=== PATIENT | female | born 1940 | race Caucasian/White ===

== ENCOUNTER 2018-01-19 13:14 | Observation (INO) ==
[2018-01-19] MEDS ORDERED: 0.9 % Sodium Chloride 1,000 ML ONE (13:28)
[2018-01-19] MEDS ORDERED: Ondansetron 4 MG/2 ML VIAL IVP ONE (13:29)
[2018-01-19] MEDS ORDERED: *HR* FentaNYL (PF) 100 MCG/2 ML VIAL IVP ONE (13:29)
[2018-01-19] MEDS ORDERED: 0.9 % Sodium Chloride 1,000 ML IVC SCH (13:30)
--- NOTE | 2018-01-19 13:31 | Emergency Department Note ---
Disposition Clinical Impression: Defibrillator discharge Disposition: Transfer Other Condition: Good General Adult HPI - General Chief complaint: ED Chest Pain Stated complaint: Defib Pacer Firing Time Seen by Provider: 01/19/18 13:20 Source: patient, family Limitations: no limitations - History of Present Illness Pain Scale: 0 - Related Data Home Medications Medication Instructions Recorded Confirmed Metoprolol Succinate [Toprol Xl] 50 mg PO 01/19/18 RX: Furosemide [Lasix] 01/19/18 RX: Lisinopril [Zestril] 01/19/18 RX: Sertraline [Zoloft] 01/19/18 Warfarin Sodium [Warfarin Sodium] 01/19/18 Allergies Allergy/AdvReac Type Severity Reaction Status Date / Time sotalol Allergy Palpitation Verified 01/19/18 13:26 s Past Medical History - Past Medical History Medical history: Reports: atrial fibrillation, CHF Psychiatric history: Reports: no psych history - Social History Smoking Status: Never smoker Smokeless Tobacco Status: No Alcohol use: Reports: none Drug use: Reports: none Physical Exam - General Limitations: no limitations General appearance: alert, in no apparent distress Course Vital Signs Temperature 98.4 F 01/19/18 13:17 Pulse Rate 138 01/19/18 13:17 Respiratory Rate 18 01/19/18 13:17 Blood Pressure 123/106 01/19/18 13:17 O2 Sat by Pulse Oximetry 95 01/19/18 13:17 Temperature 98.4 F 01/19/18 13:17 Pulse Rate 89 01/19/18 15:30 Respiratory Rate 18 01/19/18 16:29 Blood Pressure 123/74 01/19/18 16:29 O2 Sat by Pulse Oximetry 95 01/19/18 15:30 Oxygen Delivery Oxygen Delivery Room Air Medical Decision Making - Lab Data Result diagrams: 01/19/18 13:26 01/19/18 13:26 Lab Results 01/19/18 01/19/18 01/19/18 Range/Units 13:26 13:26 13:26 WBC 8.2 (4.3-11.1) K/mcL RBC 4.06 (3.82-4.97) M/mcL Hgb 11.6 (11.5-15.4) g/dL Hct 35.3 (35.3-44.9) % MCV 86.9 (83.0-100.0) fL MCH 28.6 (28.0-33.3) pg MCHC 32.9 (31.6-35.5) g/dL RDW 13.7 (11.5-14.5) % Plt Count 209 (140-400) K/mcL MPV 10.5 (9.4-12.4) fL Immature Gran % 0.2 (0-4) % Seg Neutrophils % 53.1 % Lymphocytes % 30.2 % Monocytes % 11.0 % Eosinophils % 5.0 % Basophils % 0.5 % Neutrophils # 4.4 (1.6-8.9) K/mcL Lymphocytes # 2.5 (0.6-4.6) K/mcL Monocytes # 0.9 (0.0-1.3) K/mcL Eosinophils # 0.4 (0.0-0.6) K/mcL Basophils # 0.0 (0.0-0.2) K/mcL PT 20.0 H (9.4-12.1) Seconds INR 1.8 APTT 30.8 (26.0-36.0) Seconds Sodium 139 (136-145) mEq/L Potassium 3.4 L (3.5-5.1) mEq/L Chloride 105 (98-107) mEq/L Carbon Dioxide 22 L (23-29) mEq/L BUN 26 H (8-23) mg/dL Creatinine 1.16 (0.60-1.20) mg/dL Est GFR ( Amer) 55 L (> 60) Est GFR (Non-Af Amer) 46 L (> 60) BUN/Creatinine Ratio 22 (6-26) Glucose 165 H (70-105) mg/dL Calculated Osmolality 296 (280-300) Calcium 9.6 (8.6-10.3) mg/dL Troponin I 0.06 H* (< 0.04) ng/mL TSH 2.918 (0.340-5.600) mcIU/mL Critical Care Time Critical Care Time: Yes Total Critical Care Time: 40 Attestation: Critical care performed: Time is exclusive of separately billable procedures. Time includes: direct patient care, patient reassessment, coordination of patient care, interpretation of data (laboratory data, radiology data, and respiratory data), review of patient's medical records, medical consultation and documentation of patient care. Procedures included in critical care time: Procedures excluded from critical care time: Attestation Statement - Attestation Attestation: I examined this patient and my medical decision-making was reviewed with the Resident Physician. I agree with the documented findings, disposition and treatment plan as described except to the extent set forth below. Patient to the ED with a chief complaint of her defibrillator firing. Multiple firings before she arrived here. Patient is visiting from out of town for a birthday libertarian. She did not bring her metoprolol. She has a defibrillator that she states was placed for A. fib. Patient in no distress on examination. Heart tachycardia and irregularly irregular. Plan. Patient is in A. fib with RVR. Infrequent PVCs. Multiple shocks when her rate approaches 150. Patient is likely BNP febrile in her for A. fib with RVR secondary to not taking her home medications. Attempting to obtain a card from [facility] for her defibrillator. IV Cardizem given. Patient has been discussed with cardiology. She will be admitted here. Rate control below [address] [facility] contacted to interrogate. The patient had no further shocks since her rate is been controlled. Her AICD was interrogated. The patient's aicd has gone into back of mode. Unable to print off her report. The patient has had over 100 charges. They are recommending device replacement. Patient is requesting a good amount caramel for this. Device has been shut off with magnet at the request of the accepting client relations representative.
[2018-01-19 13:50] LABS: Basophils % 0.5 %; Eosinophils # 0.4 K/mcL (0.0-0.6); Hematocrit 35.3 % (35.3-44.9); Hemoglobin 11.6 g/dL (11.5-15.4); Immature Granulocytes % 0.2 % (0-4); Lymphocytes # 2.5 K/mcL (0.6-4.6); Lymphocytes % 30.2 %; Mean Corpuscular HGB Conc 32.9 g/dL (31.6-35.5); Mean Corpuscular Hemoglobin 28.6 pg (28.0-33.3); Mean Corpuscular Volume 86.9 fL (83.0-100.0); Mean Platelet Volume 10.5 fL (9.4-12.4); Monocytes # 0.9 K/mcL (0.0-1.3); Neutrophils # 4.4 K/mcL (1.6-8.9); Platelet Count 209 K/mcL (140-400); Red Blood Count 4.06 M/mcL (3.82-4.97); Red Cell Distribution Width 13.7 % (11.5-14.5); Segmented Neutrophils % 53.1 %
[2018-01-19 13:55] LABS: INR 1.8
[2018-01-19 13:58] LABS: Activated Partial Thrombo Time 30.8 Seconds (26.0-36.0)
[2018-01-19 14:15] LABS: Calcium 9.6 mg/dL (8.6-10.3); Potassium 3.4 mEq/L (3.5-5.1)
[2018-01-19 14:23] LABS: Thyroid Stimulating Hormone 2.918 mcIU/mL (0.340-5.600)
[2018-01-19 14:27] LABS: Troponin I 0.06 ng/mL (< 0.04)
--- NOTE | 2018-01-19 15:04 | Emergency Department Note ---
Disposition Clinical Impression: Defibrillator discharge Disposition: Transfer Other Condition: Good Chest Pain HPI - General Chief Complaint: ED Chest Pain Stated Complaint: Defib Pacer Firing Time Seen by Provider: 01/19/18 13:20 Source: patient, family Limitations: no limitations Vital Signs Reviewed: Yes Nursing Notes Reviewed: Yes - History of Present Illness HPI Narrative: Patient presents today for evaluation of defibrillator firing. Patient has a history of ischemic cardiomyopathy with defibrillator placement. History of atrial fibrillation on Coumadin. The patient presents today for evaluation of ventilator firing. She was traveling for a birthday alliance party and has been without her rate control medication for 2 days. She got in argument and became upset. Patient was walking down the driveway when her defibrillator went off. Patient had greater than 20 reported shocks prior to arrival. The patient had 2 shocks while in the emergency department. Patient's monitor did not show V. tach. A. fib RVR with great greater than 130. The patient has not had any other preceding symptoms. Does not shortness of breath. Patient's chest is sore. Patient will be given rate control medication as well as pain medication and labs will be checked. A request has been sent for her device information. Her device is a [facility] defibrillator and a wrap will be called to come interrogate. Severity scale (1-10): 0 - Related Data Home Medications Medication Instructions Recorded Confirmed Metoprolol Succinate [Toprol Xl] 50 mg PO 01/19/18 RX: Furosemide [Lasix] 01/19/18 RX: Lisinopril [Zestril] 01/19/18 RX: Sertraline [Zoloft] 01/19/18 Warfarin Sodium [Warfarin Sodium] 01/19/18 Allergies Allergy/AdvReac Type Severity Reaction Status Date / Time sotalol Allergy Palpitation Verified 01/19/18 13:26 s Review of Systems: CONSTITUTIONAL: No weight loss, fever, chills, weakness or fatigue. HEENT: Eyes: No visual changes. Ears, Nose, Throat: No hearing loss, difficulty talking or unable to swallow. SKIN: No rash or itching. CARDIOVASCULAR: Chest pain after defibrillator firing RESPIRATORY: No shortness of breath, cough or sputum. GASTROINTESTINAL: No anorexia, nausea, vomiting or diarrhea. No abdominal pain or blood. GENITOURINARY: No burning on urination or hematuria. NEUROLOGICAL: No headache, dizziness, syncope, paralysis, ataxia, numbness or tingling in the extremities. No change in bowel or bladder control. MUSCULOSKELETAL: No muscle pain, back pain, joint pain or stiffness. Chest Pain PMH - Past Medical History Medical history: Reports: atrial fibrillation, CHF Psychiatric history: Reports: no psych history - Social History Smoking Status: Never smoker Alcohol use: Reports: none Drug use: Reports: none Physical Exam General: Patient received fibular shock while Head: Normocephalic Atraumatic Eyes: PERRL, EOMI ENT: Airway patent, no stridor Neck: supple, no meningismus Chest: Lungs clear to auscultation bilateral Cardiac: Irregular rate and rhythm Abdomen: soft, nontender, nondistended; no guarding, rebound, or tenderness to percussion Musculoskeletal: Calves symmetric, nontender, no palpable cord Skin: No rash, normal skin tone Neuro: Alert and Oriented to person, place, and time - General Limitations: no limitations General appearance: alert, in no apparent distress Course - Reevaluation(s) Reevaluation #1: Information from our [facility] has been obtained. Case was discussed with cardiology. Patient was offered admission to the hospital versus transferred to see her sergeant of officers about [facility]. Patient requests to stay here his family and all of her other resources are in this area. - Consultations Consultation #1: Call was placed a [facility] Ont[facility] on the way to interrogate the device Consultation #2: Discussed with cardiology. Patient should be brought into the emergency department secondary to common a shock she has received. Further evaluation of the cardiology team will happen as a consult. Consultation #3: Discussed with hospitalist. Patient accept for admission. Additional Consultation(s): [facility] came to the emergency department to evaluate the device. The device has gone into backup mode with a lower set rate which likely explain the discharges. The device will need to be exchanged. I have discussed this with the patient and the patient requests transfer to [facility] to see Dr. Shipley. Alcohol was called and Dr. Shipley was available to discuss the case. He recommends placing a magnet on the chest to deactivate the defibrillator so that it is not shocker while in A. fib. Magnet has been placed on the patient's chest. She has been reevaluated and continues to be asymptomatic as she is rate controlled in the 80s. Blood pressure continues to be stable. Vital Signs Temperature 98.4 F 01/19/18 13:17 Pulse Rate 138 01/19/18 13:17 Respiratory Rate 18 01/19/18 13:17 Blood Pressure 123/106 01/19/18 13:17 O2 Sat by Pulse Oximetry 95 01/19/18 13:17 Temperature 98.4 F 01/19/18 13:17 Pulse Rate 89 01/19/18 15:30 Respiratory Rate 18 01/19/18 16:29 Blood Pressure 123/74 01/19/18 16:29 O2 Sat by Pulse Oximetry 95 01/19/18 15:30 Oxygen Delivery Oxygen Delivery Room Air Chest Pain - Medical Records Medical records reviewed: Yes I reviewed the patient's medical records. - Lab Data Lab results reviewed: Yes I reviewed the patient's lab results. Result diagrams: 01/19/18 13:26 01/19/18 13:26 Lab Results 01/19/18 01/19/18 01/19/18 Range/Units 13:26 13:26 13:26 WBC 8.2 (4.3-11.1) K/mcL RBC 4.06 (3.82-4.97) M/mcL Hgb 11.6 (11.5-15.4) g/dL Hct 35.3 (35.3-44.9) % MCV 86.9 (83.0-100.0) fL MCH 28.6 (28.0-33.3) pg MCHC 32.9 (31.6-35.5) g/dL RDW 13.7 (11.5-14.5) % Plt Count 209 (140-400) K/mcL MPV 10.5 (9.4-12.4) fL Immature Gran % 0.2 (0-4) % Seg Neutrophils % 53.1 % Lymphocytes % 30.2 % Monocytes % 11.0 % Eosinophils % 5.0 % Basophils % 0.5 % Neutrophils # 4.4 (1.6-8.9) K/mcL Lymphocytes # 2.5 (0.6-4.6) K/mcL Monocytes # 0.9 (0.0-1.3) K/mcL Eosinophils # 0.4 (0.0-0.6) K/mcL Basophils # 0.0 (0.0-0.2) K/mcL PT 20.0 H (9.4-12.1) Seconds INR 1.8 APTT 30.8 (26.0-36.0) Seconds Sodium 139 (136-145) mEq/L Potassium 3.4 L (3.5-5.1) mEq/L Chloride 105 (98-107) mEq/L Carbon Dioxide 22 L (23-29) mEq/L BUN 26 H (8-23) mg/dL Creatinine 1.16 (0.60-1.20) mg/dL Est GFR ( Amer) 55 L (> 60) Est GFR (Non-Af Amer) 46 L (> 60) BUN/Creatinine Ratio 22 (6-26) Glucose 165 H (70-105) mg/dL Calculated Osmolality 296 (280-300) Calcium 9.6 (8.6-10.3) mg/dL Troponin I 0.06 H* (< 0.04) ng/mL TSH 2.918 (0.340-5.600) mcIU/mL - Radiology Data Radiology results reviewed: Yes I reviewed the patient's radiology results. - EKG Data EKG attestation: Yes I reviewed and interpreted this EKG. EKG results narrative: EKG shows atrial fibrillation with rapid ventricular response at a rate of 124. Patient has no significant ST elevations or depressions. There are occasional PVCs. No significant ischemic changes.
[2018-01-19] MEDS ORDERED: Naloxone 0.4 MG/ML INJ IVP PRN (16:16)
[2018-01-19] MEDS ORDERED: *HR* Heparin 5,000 UNIT/ML VIAL SQ ONE (16:20)
--- NOTE | 2018-01-19 16:31 | Internal Med History&Physical ---
<Delbert Ellis - Last Filed: 01/19/18 16:28> Date of Encounter: 01/19/18 Time of Encounter: 16:28 Internal Medicine - H&P: HPI Chief complaint: AICD firing Admitted From: Home Plans for Post Hospital Care: Home History of present illness: Ms. Gannon is a 77 year old female history of congestive heart failure, atrial fibrillation, coronary artery disease presented with chief complaint of a AICD firing 30 times this morning. Patient reports she was in a argument with her daughter and became agitated. Her heart rate increased and her AICD started firing. She is on metoprolol for A. fib but forgot her medication at home. Patient reported chest pain secondary to AICD firing as well as nausea. She denied headache, blurry vision, diaphoresis, shortness of breath, cough. Patient reports this has happened in the past in 2012 and her certified wellness program coordinator had to change the pacemaker/AICD settings. Patient had AICD placed in [facility]. Her last device check was 7 months ago. Past Med Surg Social Fam HX - Past Medical History Medical history: atrial fibrillation, CHF Psychiatric history: no psych history - Past Surgical History Surgical History: appendectomy, breast surgery (b/l mastectomy-1960s for suspected breast cancer but patient reports biopsy was benign. ), heart valve replacement (mitral valve replacement), AICD, pacemaker - Social History Smoking Status: Never smoker Smokeless Tobacco Status: No Alcohol use: none Drug use: none Internal Medicine - H&P: Meds Furosemide [Lasix] 01/19/18 [History] Lisinopril [Zestril] 01/19/18 [History] Metoprolol Succinate [Toprol Xl] 50 mg PO 01/19/18 [History] Sertraline [Zoloft] 01/19/18 [History] Warfarin Sodium [Warfarin Sodium] 01/19/18 [History] 3 Allergy/AdvReac Type Severity Reaction Status Date / Time sotalol Allergy Palpitation Verified 01/19/18 13:26 s All Systems PM: A 10-system review of systems was performed and is negative for pertinent findings except as documented above in the HPI. Review of systems: Constitutional: Denies fever, chills HEENT: Denies headache, vision changes, neck pain, sore throat, rhinorrhea Heart: Reports chest pain palpitations Lungs: Denies shortness of breath cough Abdomen: Denies abdominal pain vomiting diarrhea Back: Denies back pain Kidney: Denies dysuria, hematuria Skin: Denies rash, lesions Extremities: Denies swelling, pain Neuro: Denies numbness and tingling - Constitutional Vitals: Temp Pulse Resp BP Pulse Ox 98.4 F 89 16 110/83 95 01/19/18 13:17 01/19/18 15:30 01/19/18 15:30 01/19/18 15:30 01/19/18 15:30 - Other Additional findings: General: plesant without distress HEENT: Head atraumatic, normocephalic, EOMI, PERRL, neck nontender to palpation , absent lymphadenopathy, Moist Mucous Membranes, Heart: Irregularly irregular rate controlled Lungs: Clear to auscultation bilaterally Abdomen: Soft nontender, nondistended positive bowel sounds Skin: warm and dry, absent rash. Proximal sternal scar s/p mitral vavle replacement. Extremities: Trace symmetric lower extremity edema with 1+ left lower extremity and no edema on right lower extremity Patient reports this is normal for her. Neuro: Cranial nerves II through XII intact, UE and LE sensation equal bilaterally, UE and LEstrength 5/5, alert oriented 3, Heel to leal intact, finger to nose intact, Gait intact, rhombergs sign negative, b/l plantar reflexes downwards Vascular: Pedal and radial pulses 2 out of 4 Internal Med - H&P Results - Labs CBC & Chem 7: 01/19/18 13:26 01/19/18 13:26 - Assessment and plan (1) Defibrillator discharge Current Visit: Yes Status: Acute Assessment and plan: Patient reports she was an argument with her daughter resulted in increase in her heart rate. This has happened in the past. She reports her AICD fired 30 times. Since admission her AICD has not fired. Cardiology has been consulted for device check (2) Atrial fibrillation with RVR Current Visit: Yes Status: Resolved Assessment and plan: Patient presented with A. fib RVR She was turned Cardizem drip and currently A. fib RVR has resolved. We will continue Cardizem drip and restart patient's metoprolol continue warfarin INR 1.8. (3) H/O mitral valve replacement with mechanical valve Current Visit: Yes Status: Acute Assessment and plan: hx of mitral valve replacement on warfarin no echo on file as she follows at [facility] [place]. (4) History of anxiety Current Visit: Yes Status: Acute Assessment and plan: Patient has a history of anxiety. We will continue her sertraline. (5) Congestive heart failure Current Visit: Yes Status: Chronic Assessment and plan: Patient has a history of congestive heart failure. Not an exacerbation. Chest x-ray was negative for acute process did show cardiomegaly. Continue Lasix and lisinopril Qualifiers: Heart failure type: unspecified Heart failure chronicity: chronic Qualified Code(s): I50.9 - Heart failure, unspecified (6) Hypokalemia Current Visit: Yes Status: Acute Assessment and plan: Mildly hypokalemic will replace. (7) DVT prophylaxis Current Visit: Yes Status: Acute Assessment and plan: warfarin - Time Spent With Patient Total time spent is greater than 50% in coordination of care (as documented) at patient's floor/unit and/or counseling patient: <Kameron Jimenez - Last Filed: 01/19/18 18:23> Date of Encounter: 01/19/18 Internal Medicine - H&P: HPI History of present illness: Ms. Gannon is a 77 year old female All Systems PM: A 10-system review of systems was performed and is negative for pertinent findings except as documented above in the HPI. - Constitutional Vitals: Temp Pulse Resp BP Pulse Ox 98.4 F 89 18 123/74 95 01/19/18 13:17 01/19/18 15:30 01/19/18 16:29 01/19/18 16:29 01/19/18 15:30 Internal Med - H&P Results - Labs CBC & Chem 7: 01/19/18 13:26 01/19/18 13:26 - Attending Attestation Pt transferred to [facility]. I did not see her. - Assessment and plan (1) Defibrillator discharge Current Visit: Yes Status: Acute (2) Atrial fibrillation with RVR Current Visit: Yes Status: Resolved (3) H/O mitral valve replacement with mechanical valve Current Visit: Yes Status: Acute (4) History of anxiety Current Visit: Yes Status: Acute (5) Congestive heart failure Current Visit: Yes Status: Chronic Qualifiers: Heart failure type: unspecified Heart failure chronicity: chronic Qualified Code(s): I50.9 - Heart failure, unspecified (6) Hypokalemia Current Visit: Yes Status: Acute (7) DVT prophylaxis Current Visit: Yes Status: Acute - Time Spent With Patient Total time spent is greater than 50% in coordination of care (as documented) at patient's floor/unit and/or counseling patient:
[2018-01-19] MEDS ORDERED: Potassium Chloride Elixir 20 MEQ/15 ML UDC PO ONE (16:42)
[2018-01-19] MEDS ORDERED: *HR* Enoxaparin 60 MG/0.6 ML SYRINGE SQ STA (17:39)
[2018-01-19] MEDS ORDERED: *HR* Warfarin 3 MG TABLET PO SCH (18:00)
[2018-01-20] MEDS ORDERED: *HR* Heparin 5,000 UNIT/ML VIAL IVP ONE (07:49)
[2018-01-20] MEDS ORDERED: *HR* Heparin 5,000 UNIT/ML VIAL IVP PRN ×2 (07:49)
[2018-01-20] MEDS ORDERED: Heparin 25,000 UNIT/500 ML D5W 25,000 UNIT/500 ML BAG IVC SCH (08:00)
--- NOTE | 2018-01-20 08:48 | Event Note ---
Date of Encounter: 01/20/18 Time of Encounter: 08:00 - Cardiology Event Note Patient listed as inpatient as of this morning at time of order for IV heparin gtt. Order for heparin gtt (standard) protocol ordered for INR 1.8 and hx of mechanical MV. Upon further review, patient was transferred to [facility] (pt request, Equipment Tester Dr. Shipley) yesterday 01/19.
[2018-01-20] MEDS ORDERED: Furosemide 40 MG TABLET PO SCH (09:00)
[2018-01-20] MEDS ORDERED: Metoprolol XL (24 HR) Succ 50 MG TAB.ER.24H PO SCH (09:00)
[2018-01-20] MEDS ORDERED: Lisinopril 20 MG TABLET PO SCH (09:00)
--- NOTE | 2018-01-21 14:25 | Electrocardiograph Report ---
[place] [address] Test Date: 2018-01-19 Pat Name: Marcia Gannon Department: 102 Room: [facility] Gender: F Safety Companion: Naa : 1940 Requested By: [id number] Order Number: [id number] Reading MD: Lizy Arenas Measurements Intervals [place] Rate: 124 P: FL: 0 QRS: 71 QRSD: 96 T: 6 QT: 312 QTc: 386 Interpretive Statements ATRIAL FIBRILLATION WITH RAPID VENTRICULAR RESPONSE WITH ABERRANT CONDUCTION OR VENTRICULAR PREMATURE COMPLEXES POSSIBLE ANTERIOR MYOCARDIAL INFARCTION [30 ms Q WAVE IN V3/V4, OR R < 0.2 mV IN V4], OF INDETERMINATE AGE Electronically Signed On 01-21-2018 14:24:00 EDT by Lizy Arenas
== END 2018-01-21 12:40 | disposition other institution (70) ==
LOC: EMEROO 13:14 → 2NENU 13:14 → UNDODISOB 19:10
PROVIDERS: ADMIT General Practice; ATTEND General Practice

== ENCOUNTER 2019-11-25 17:49 | Inpatient (IN) ==
[2019-11-25 18:59] LABS: Basophils % 0.3 %; Eosinophils # 0.1 K/mcL (0.0-0.6); Eosinophils % 2.6 %; Hematocrit 33.1 % (35.3-44.9); Hemoglobin 10.4 g/dL (11.5-15.4); Immature Granulocytes % 0.3 % (0-4); Lymphocytes # 0.8 K/mcL (0.6-4.6); Lymphocytes % 20.7 %; Mean Corpuscular HGB Conc 31.4 g/dL (31.6-35.5); Mean Corpuscular Hemoglobin 24.8 pg (28.0-33.3); Mean Platelet Volume 11.8 fL (9.4-12.4); Monocytes # 0.6 K/mcL (0.0-1.3); Neutrophils # 2.4 K/mcL (1.6-8.9); Platelet Count 161 K/mcL (140-400); Red Blood Count 4.19 M/mcL (3.82-4.97); Red Cell Distribution Width 16.7 % (11.5-14.5); Segmented Neutrophils % 61.1 %; White Blood Count 3.9 K/mcL (4.3-11.1)
[2019-11-25 19:01] LABS: INR 2.5; Prothrombin Time 28.7 Seconds (9.4-12.1)
[2019-11-25 19:04] LABS: Activated Partial Thrombo Time 45.5 Seconds (26.0-36.0)
[2019-11-25 19:17] LABS: BUN/Creatinine Ratio 16 (6-26); Blood Urea Nitrogen 20 mg/dL (8-23); Calcium 9.3 mg/dL (8.6-10.3); Carbon Dioxide 25 mEq/L (23-29); Chloride 103 mEq/L (98-107); Glucose 87 mg/dL (70-105); Osmolality,Calculated 284 (280-300); Potassium 3.9 mEq/L (3.5-5.1); Sodium 136 mEq/L (136-145); eGFR For African Americans 52 (> 60); eGFR For Non-African Americans 43 (> 60)
[2019-11-25 19:18] LABS: Troponin I < 0.03 ng/mL (< 0.04)
[2019-11-25] MEDS ORDERED: Furosemide 20 MG/2 ML VIAL IVP ONE (19:33)
[2019-11-25] MEDS ORDERED: *HR* Warfarin 3 MG TABLET PO ONE (23:45)
[2019-11-26 04:46] LABS: INR 2.6; Prothrombin Time 29.8 Seconds (9.4-12.1)
[2019-11-26 05:01] LABS: Albumin 3.8 g/dL (3.5-5.7); Albumin/Globulin Ratio 1.7 (1.1-2.2); Bilirubin,Total 1.2 mg/dL (0.3-1.0); Calcium 9.3 mg/dL (8.6-10.3); Globulin 2.3 g/dL (2.4-3.5); Potassium 3.7 mEq/L (3.5-5.1); Total Protein 6.1 g/dL (6.4-8.9)
[2019-11-26 07:51] LABS: Hemoglobin 10.2 g/dL (11.5-15.4); Mean Corpuscular Volume 79.3 fL (83.0-100.0)
[2019-11-26 07:53] LABS: Hematocrit 32.6 % (35.3-44.9); Immature Platelets 5.4 % (1.1-6.1); Mean Corpuscular HGB Conc 31.3 g/dL (31.6-35.5); Mean Corpuscular Hemoglobin 24.8 pg (28.0-33.3); Mean Platelet Volume 11.8 fL (9.4-12.4); Red Blood Count 4.11 M/mcL (3.82-4.97); Red Cell Distribution Width 16.7 % (11.5-14.5); White Blood Count 3.3 K/mcL (4.3-11.1)
[2019-11-26] MEDS ORDERED: Perflutren Lipid Microsphere 1.3 ML in 0.9 % Sodium Chloride 8.7 ML IVP ONE (08:08)
[2019-11-26] MEDS ORDERED: Furosemide 20 MG/2 ML VIAL IVP SCH (09:00)
[2019-11-26] MEDS ORDERED: Acetaminophen 325 MG TABLET PO PRN (11:22)
[2019-11-26] MEDS: Metoprolol XL (24 HR) Succ 25 MG TAB.ER.24H PO SCH (15:39)
[2019-11-26] MEDS: lisinopriL 5 MG TABLET PO SCH (15:39)
[2019-11-26] MEDS ORDERED: Warfarin perPT PO PRN (18:00)
[2019-11-26] MEDS ORDERED: *HR* Warfarin 3 MG TABLET PO ONE (18:00)
[2019-11-26] MEDS: Furosemide 20 MG/2 ML VIAL IVP SCH (19:49)
[2019-11-27 02:35] LABS: Basophils % 0.2 %; Eosinophils # 0.1 K/mcL (0.0-0.6); Eosinophils % 1.9 %; Hematocrit 31.8 % (35.3-44.9); Immature Granulocytes % 0.2 % (0-4); Lymphocytes # 0.9 K/mcL (0.6-4.6); Lymphocytes % 21.1 %; Mean Corpuscular HGB Conc 31.4 g/dL (31.6-35.5); Mean Corpuscular Hemoglobin 24.6 pg (28.0-33.3); Mean Corpuscular Volume 78.3 fL (83.0-100.0); Mean Platelet Volume 11.1 fL (9.4-12.4); Monocytes # 0.6 K/mcL (0.0-1.3); Neutrophils # 2.6 K/mcL (1.6-8.9); Platelet Count 153 K/mcL (140-400); Red Blood Count 4.06 M/mcL (3.82-4.97); Red Cell Distribution Width 16.6 % (11.5-14.5); Segmented Neutrophils % 61.6 %; White Blood Count 4.3 K/mcL (4.3-11.1)
[2019-11-27 02:38] LABS: INR 2.9
[2019-11-27 02:56] LABS: Calcium 9.3 mg/dL (8.6-10.3); Potassium 3.5 mEq/L (3.5-5.1)
[2019-11-27] MEDS: Metoprolol XL (24 HR) Succ 25 MG TAB.ER.24H PO SCH (08:30)
[2019-11-27] MEDS: lisinopriL 5 MG TABLET PO SCH (08:30)
[2019-11-27] MEDS: Furosemide 20 MG/2 ML VIAL IVP SCH (08:39)
[2019-11-27 11:20] VITALS: BP 98/60
[2019-11-27] MEDS ORDERED: *HR* Warfarin 3 MG TABLET PO ONE (18:00)
== END 2019-11-27 13:09 | disposition home or self-care (01) | DRG 292 ==
LOC: EMEROOARM 17:49 → 3BNU 17:49
PROVIDERS: ADMIT Internal Medicine; ATTEND Internal Medicine

== ENCOUNTER 2020-02-16 06:28 | Inpatient (IN) ==
[2020-02-16 07:25] LABS: Basophils % 0.6 %; Eosinophils # 0.2 K/mcL (0.0-0.6); Hematocrit 33.8 % (35.3-44.9); Hemoglobin 10.3 g/dL (11.5-15.4); Immature Granulocytes % 0.2 % (0-4); Lymphocytes # 0.6 K/mcL (0.6-4.6); Lymphocytes % 12.7 %; Mean Corpuscular HGB Conc 30.5 g/dL (31.6-35.5); Mean Corpuscular Hemoglobin 24.5 pg (28.0-33.3); Mean Corpuscular Volume 80.3 fL (83.0-100.0); Mean Platelet Volume 10.8 fL (9.4-12.4); Monocytes # 0.6 K/mcL (0.0-1.3); Monocytes % 11.7 %; Neutrophils # 3.6 K/mcL (1.6-8.9); Platelet Count 159 K/mcL (140-400); Red Blood Count 4.21 M/mcL (3.82-4.97); Red Cell Distribution Width 19.4 % (11.5-14.5); Segmented Neutrophils % 71.8 %
[2020-02-16 07:39] LABS: INR 4.6; Prothrombin Time 52.1 Seconds (9.4-12.1)
[2020-02-16 07:54] LABS: Calcium 9.3 mg/dL (8.6-10.3); Potassium 3.7 mEq/L (3.5-5.1); Troponin I 0.05 ng/mL (< 0.04)
[2020-02-16] MEDS ORDERED: Aspirin 325 MG TABLET PO ONE (08:39)
[2020-02-16] MEDS ORDERED: Furosemide 40 MG/4 ML VIAL IVP ONE (08:40)
[2020-02-16] MEDS: Albumin 25% 25gram/100mL 25 GM/100 ML IV.SOLN IVPB SCH ×2 (11:01→15:16)
[2020-02-16] MEDS: Metoprolol XL (24 HR) Succ 25 MG TAB.ER.24H PO SCH (11:06)
[2020-02-16] MEDS: Furosemide 40 MG/4 ML VIAL IVP SCH ×2 (12:33→21:29)
[2020-02-16] MEDS ORDERED: Warfarin perPT PO PRN (18:00)
[2020-02-17] MEDS: Albumin 25% 25gram/100mL 25 GM/100 ML IV.SOLN IVPB SCH ×3 (01:55→17:47)
[2020-02-17 04:47] LABS: Basophils % 0.5 %; Hemoglobin 9.5 g/dL (11.5-15.4); INR 3.6; Prothrombin Time 40.6 Seconds (9.4-12.1); Red Cell Distribution Width 19.3 % (11.5-14.5)
[2020-02-17 04:48] LABS: Eosinophils # 0.1 K/mcL (0.0-0.6); Eosinophils % 3.2 %; Immature Granulocytes % 0.5 % (0-4); Immature Platelets 4.7 % (1.1-6.1); Lymphocytes # 0.6 K/mcL (0.6-4.6); Lymphocytes % 16.4 %; Mean Corpuscular HGB Conc 30.6 g/dL (31.6-35.5); Mean Corpuscular Hemoglobin 24.5 pg (28.0-33.3); Mean Corpuscular Volume 79.9 fL (83.0-100.0); Mean Platelet Volume 11.4 fL (9.4-12.4); Monocytes # 0.5 K/mcL (0.0-1.3); Neutrophils # 2.4 K/mcL (1.6-8.9); Platelet Count 115 K/mcL (140-400); Red Blood Count 3.88 M/mcL (3.82-4.97); Segmented Neutrophils % 65.4 %; White Blood Count 3.7 K/mcL (4.3-11.1)
[2020-02-17 05:00] LABS: Calcium 9.4 mg/dL (8.6-10.3); Potassium 3.2 mEq/L (3.5-5.1)
[2020-02-17] MEDS: Metoprolol XL (24 HR) Succ 25 MG TAB.ER.24H PO SCH (11:11)
[2020-02-17] MEDS: Furosemide 40 MG/4 ML VIAL IVP SCH ×2 (11:11→20:20)
[2020-02-17] MEDS: lisinopriL 5 MG TABLET PO SCH (11:11)
[2020-02-17] MEDS ORDERED: *HR* Warfarin 2 MG TABLET PO ONE (18:00)
[2020-02-17] MEDS ORDERED: *HR* Warfarin 2.5 MG TABLET PO ONE (18:00)
[2020-02-17] MEDS ORDERED: Mag Hydrox/Al Hydrox/Simeth 30 ML UDC PO PRN (19:42)
[2020-02-18] MEDS: Albumin 25% 25gram/100mL 25 GM/100 ML IV.SOLN IVPB SCH ×2 (01:46→09:56)
[2020-02-18 06:11] LABS: INR 2.6; Prothrombin Time 29.8 Seconds (9.4-12.1)
[2020-02-18 06:15] LABS: Hematocrit 29.5 % (35.3-44.9); Hemoglobin 9.2 g/dL (11.5-15.4); Immature Platelets 5.3 % (1.1-6.1); Mean Corpuscular HGB Conc 31.2 g/dL (31.6-35.5); Mean Corpuscular Hemoglobin 24.7 pg (28.0-33.3); Mean Corpuscular Volume 79.1 fL (83.0-100.0); Mean Platelet Volume 11.5 fL (9.4-12.4); Red Blood Count 3.73 M/mcL (3.82-4.97); Red Cell Distribution Width 19.2 % (11.5-14.5); White Blood Count 4.7 K/mcL (4.3-11.1)
[2020-02-18 06:31] LABS: Calcium 9.7 mg/dL (8.6-10.3); Potassium 3.6 mEq/L (3.5-5.1)
[2020-02-18] MEDS: Metoprolol XL (24 HR) Succ 25 MG TAB.ER.24H PO SCH (09:55)
[2020-02-18] MEDS: lisinopriL 5 MG TABLET PO SCH (09:55)
[2020-02-18] MEDS: Furosemide 40 MG/4 ML VIAL IVP SCH (09:56)
[2020-02-18 12:53] VITALS: BP 102/55
[2020-02-18] MEDS ORDERED: *HR* Warfarin 5 MG TABLET PO ONE (14:16)
== END 2020-02-18 16:38 | disposition home health service (06) | DRG 280 ==
LOC: EMEROOARM 06:28 → 3BNU 06:28
PROVIDERS: ADMIT Internal Medicine; ATTEND Internal Medicine

== ENCOUNTER 2020-10-16 08:04 | Inpatient (IN) ==
[2020-10-16 08:50] LABS: Basophils % 0.7 %; Eosinophils # 0.2 K/mcL (0.0-0.6); Eosinophils % 4.1 %; Hemoglobin 8.8 g/dL (11.5-15.4); Immature Granulocytes % 0.2 % (0-4); Lymphocytes # 0.7 K/mcL (0.6-4.6); Lymphocytes % 17.4 %; Mean Corpuscular HGB Conc 31.4 g/dL (31.6-35.5); Mean Corpuscular Hemoglobin 23.7 pg (28.0-33.3); Mean Corpuscular Volume 75.5 fL (83.0-100.0); Mean Platelet Volume 10.3 fL (9.4-12.4); Monocytes # 0.6 K/mcL (0.0-1.3); Monocytes % 15.3 %; Neutrophils # 2.6 K/mcL (1.6-8.9); Platelet Count 165 K/mcL (140-400); Red Blood Count 3.71 M/mcL (3.82-4.97); Red Cell Distribution Width 19.3 % (11.5-14.5); Segmented Neutrophils % 62.3 %; White Blood Count 4.1 K/mcL (4.3-11.1)
[2020-10-16 08:56] LABS: INR 3.9
[2020-10-16 09:01] LABS: Prothrombin Time 43.9 Seconds (9.4-12.1)
[2020-10-16 09:16] LABS: BUN/Creatinine Ratio 21 (6-26); Blood Urea Nitrogen 18 mg/dL (8-23); Calcium 9.1 mg/dL (8.6-10.3); Carbon Dioxide 26 mEq/L (23-29); Chloride 106 mEq/L (98-107); Glucose 123 mg/dL (70-105); Osmolality,Calculated 293 (280-300); Potassium 3.5 mEq/L (3.5-5.1); Sodium 140 mEq/L (136-145); Troponin I < 0.03 ng/mL (< 0.04); eGFR For African Americans > 60 (> 60); eGFR For Non-African Americans > 60 (> 60)
[2020-10-16 10:18] LABS: Adenovirus Not Detected (Not Detect); Bordetella Pertussis Not Detected (Not Detect); Chlamydophila pneumoniae Not Detected (Not Detect); Coronavirus 229E Not Detected (Not Detect); Coronavirus HKU1 Not Detected (Not Detect); Coronavirus NL63 Not Detected (Not Detect); Coronavirus OC43 Not Detected (Not Detect); Human Metapneumovirus Not Detected (Not Detect); Human Rhinovirus/Enterovirus Not Detected (Not Detect); Influenza A Subtype 2009 H1 Not Detected (Not Detect); Influenza B Not Detected (Not Detect); Mycoplasma pneumoniae Not Detected (Not Detect); Parainfluenza Virus 1 Not Detected (Not Detect); Parainfluenza Virus 2 Not Detected (Not Detect); Parainfluenza Virus 3 Not Detected (Not Detect); Parainfluenza Virus 4 Not Detected (Not Detect); Respiratory Syncytial Virus Not Detected (Not Detect); SARS-CoV-2 Not Detected (Not Detect)
[2020-10-16] MEDS ORDERED: Naloxone 0.4 MG/ML INJ IVP PRN (10:43)
[2020-10-16] MEDS ORDERED: Mag Hydrox/Al Hydrox/Simeth 30 ML UDC PO PRN (10:43)
[2020-10-16] MEDS ORDERED: Furosemide 40 MG/4 ML VIAL IVP ONE (10:45)
[2020-10-16] MEDS ORDERED: Warfarin perPT PO PRN (18:00)
[2020-10-16] MEDS ORDERED: *HR* Warfarin 2 MG TABLET PO ONE (18:00)
[2020-10-17 05:11] LABS: Basophils % 0.6 %; Eosinophils # 0.1 K/mcL (0.0-0.6); Eosinophils % 2.5 %; Hematocrit 27.6 % (35.3-44.9); Hemoglobin 8.4 g/dL (11.5-15.4); Immature Granulocytes % 0.4 % (0-4); Lymphocytes # 0.6 K/mcL (0.6-4.6); Lymphocytes % 11.9 %; Mean Corpuscular HGB Conc 30.4 g/dL (31.6-35.5); Mean Corpuscular Hemoglobin 22.8 pg (28.0-33.3); Mean Corpuscular Volume 74.8 fL (83.0-100.0); Mean Platelet Volume 10.3 fL (9.4-12.4); Monocytes # 0.7 K/mcL (0.0-1.3); Monocytes % 14.5 %; Neutrophils # 3.6 K/mcL (1.6-8.9); Platelet Count 162 K/mcL (140-400); Red Blood Count 3.69 M/mcL (3.82-4.97); Segmented Neutrophils % 70.1 %; White Blood Count 5.1 K/mcL (4.3-11.1)
[2020-10-17 05:25] LABS: INR 4.8; Prothrombin Time 53.1 Seconds (9.4-12.1)
[2020-10-17 05:26] LABS: BUN/Creatinine Ratio 21 (6-26); Blood Urea Nitrogen 16 mg/dL (8-23); Carbon Dioxide 27 mEq/L (23-29); Chloride 106 mEq/L (98-107); Glucose 108 mg/dL (70-105); Osmolality,Calculated 290 (280-300); Potassium 3.5 mEq/L (3.5-5.1); Sodium 139 mEq/L (136-145); eGFR For African Americans > 60 (> 60); eGFR For Non-African Americans > 60 (> 60)
[2020-10-17] MEDS: Furosemide 40 MG/4 ML VIAL IVP SCH (07:54)
[2020-10-17] MEDS: lisinopriL 5 MG TABLET PO SCH (07:54)
[2020-10-17] MEDS: Metoprolol XL (24 HR) Succ 25 MG TAB.ER.24H PO SCH (07:54)
[2020-10-17 13:29] LABS: Hematocrit 28.1 % (35.3-44.9); Hemoglobin 8.9 g/dL (11.5-15.4)
[2020-10-17 21:06] LABS: Hematocrit 28.8 % (35.3-44.9); Hemoglobin 8.9 g/dL (11.5-15.4)
[2020-10-18 03:58] LABS: Basophils % 0.3 %; Eosinophils # 0.1 K/mcL (0.0-0.6); Eosinophils % 1.2 %; Hematocrit 27.7 % (35.3-44.9); Hemoglobin 8.6 g/dL (11.5-15.4); Immature Granulocytes % 0.2 % (0-4); Lymphocytes # 0.7 K/mcL (0.6-4.6); Lymphocytes % 12.6 %; Mean Corpuscular Hemoglobin 23.2 pg (28.0-33.3); Mean Corpuscular Volume 74.9 fL (83.0-100.0); Mean Platelet Volume 10.4 fL (9.4-12.4); Monocytes # 0.9 K/mcL (0.0-1.3); Monocytes % 14.7 %; Neutrophils # 4.1 K/mcL (1.6-8.9); Platelet Count 160 K/mcL (140-400); White Blood Count 5.8 K/mcL (4.3-11.1)
[2020-10-18 04:07] LABS: INR 5.5; Prothrombin Time 60.3 Seconds (9.4-12.1)
[2020-10-18 04:15] LABS: BUN/Creatinine Ratio 19 (6-26); Blood Urea Nitrogen 17 mg/dL (8-23); Calcium 8.9 mg/dL (8.6-10.3); Carbon Dioxide 27 mEq/L (23-29); Chloride 105 mEq/L (98-107); Glucose 117 mg/dL (70-105); Osmolality,Calculated 293 (280-300); Potassium 3.5 mEq/L (3.5-5.1); Sodium 140 mEq/L (136-145); eGFR For African Americans > 60 (> 60); eGFR For Non-African Americans > 60 (> 60)
[2020-10-18] MEDS: Metoprolol XL (24 HR) Succ 25 MG TAB.ER.24H PO SCH (07:54)
[2020-10-18] MEDS: lisinopriL 5 MG TABLET PO SCH (07:54)
[2020-10-18] MEDS: Cyanocobalamin (B-12) 1,000 MCG TABLET PO SCH (07:54)
[2020-10-18] MEDS: Cholecalciferol (D-3) 1,000 UNIT (25MCG) TABLET PO SCH (07:54)
[2020-10-18] MEDS: Furosemide 40 MG/4 ML VIAL IVP SCH (07:55)
[2020-10-18 13:51] LABS: Hemoglobin 8.7 g/dL (11.5-15.4)
[2020-10-18 13:53] LABS: Hematocrit 28.3 % (35.3-44.9)
[2020-10-18 21:19] LABS: Hematocrit 26.9 % (35.3-44.9); Hemoglobin 8.4 g/dL (11.5-15.4)
[2020-10-19 05:33] LABS: Basophils % 0.4 %; Eosinophils # 0.1 K/mcL (0.0-0.6); Eosinophils % 2.1 %; Hematocrit 27.1 % (35.3-44.9); Hemoglobin 8.2 g/dL (11.5-15.4); Immature Granulocytes % 0.4 % (0-4); Lymphocytes # 0.9 K/mcL (0.6-4.6); Lymphocytes % 16.4 %; Mean Corpuscular HGB Conc 30.3 g/dL (31.6-35.5); Mean Corpuscular Volume 75.9 fL (83.0-100.0); Mean Platelet Volume 10.2 fL (9.4-12.4); Monocytes # 0.9 K/mcL (0.0-1.3); Monocytes % 15.8 %; Neutrophils # 3.7 K/mcL (1.6-8.9); Platelet Count 147 K/mcL (140-400); Red Blood Count 3.57 M/mcL (3.82-4.97); Red Cell Distribution Width 18.8 % (11.5-14.5); Segmented Neutrophils % 64.9 %; White Blood Count 5.6 K/mcL (4.3-11.1)
[2020-10-19 05:39] LABS: INR 4.3
[2020-10-19 05:41] LABS: Prothrombin Time 48.1 Seconds (9.4-12.1)
[2020-10-19 05:47] LABS: BUN/Creatinine Ratio 20 (6-26); Blood Urea Nitrogen 19 mg/dL (8-23); Calcium 8.7 mg/dL (8.6-10.3); Carbon Dioxide 27 mEq/L (23-29); Chloride 104 mEq/L (98-107); Glucose 84 mg/dL (70-105); Osmolality,Calculated 289 (280-300); Potassium 3.4 mEq/L (3.5-5.1); Sodium 139 mEq/L (136-145); eGFR For African Americans > 60 (> 60); eGFR For Non-African Americans 57 (> 60)
[2020-10-19] MEDS ORDERED: Potassium Chloride Elixir 20 MEQ/15 ML UDC PO ONE (07:22)
[2020-10-19] MEDS: Cyanocobalamin (B-12) 1,000 MCG TABLET PO SCH (09:27)
[2020-10-19] MEDS: Cholecalciferol (D-3) 1,000 UNIT (25MCG) TABLET PO SCH (09:27)
[2020-10-19] MEDS: Metoprolol XL (24 HR) Succ 25 MG TAB.ER.24H PO SCH (09:28)
[2020-10-19 13:48] LABS: Hematocrit 27.9 % (35.3-44.9); Hemoglobin 8.6 g/dL (11.5-15.4)
[2020-10-19] MEDS ORDERED: *HR* Warfarin 0.5 MG TABLET PO ONE (18:00)
[2020-10-19 21:38] LABS: Hematocrit 28.7 % (35.3-44.9); Hemoglobin 8.7 g/dL (11.5-15.4)
[2020-10-20 05:58] LABS: Hemoglobin 8.4 g/dL (11.5-15.4)
[2020-10-20 06:00] LABS: Basophils % 0.6 %; Eosinophils # 0.2 K/mcL (0.0-0.6); Eosinophils % 3.7 %; Hematocrit 27.1 % (35.3-44.9); Immature Granulocytes % 0.4 % (0-4); Immature Platelets 3.8 % (1.1-6.1); Lymphocytes # 0.7 K/mcL (0.6-4.6); Lymphocytes % 13.3 %; Mean Corpuscular Hemoglobin 23.5 pg (28.0-33.3); Mean Corpuscular Volume 75.7 fL (83.0-100.0); Mean Platelet Volume 10.9 fL (9.4-12.4); Monocytes # 0.8 K/mcL (0.0-1.3); Neutrophils # 3.5 K/mcL (1.6-8.9); Platelet Count 128 K/mcL (140-400); Red Blood Count 3.58 M/mcL (3.82-4.97); White Blood Count 5.2 K/mcL (4.3-11.1)
[2020-10-20 06:05] LABS: INR 3.2
[2020-10-20 06:16] LABS: BUN/Creatinine Ratio 22 (6-26); Blood Urea Nitrogen 22 mg/dL (8-23); Calcium 8.7 mg/dL (8.6-10.3); Carbon Dioxide 28 mEq/L (23-29); Chloride 104 mEq/L (98-107); Glucose 109 mg/dL (70-105); Osmolality,Calculated 290 (280-300); Potassium 3.9 mEq/L (3.5-5.1); Sodium 138 mEq/L (136-145); eGFR For African Americans > 60 (> 60); eGFR For Non-African Americans 54 (> 60)
[2020-10-20] MEDS: Cyanocobalamin (B-12) 1,000 MCG TABLET PO SCH (08:14)
[2020-10-20] MEDS: Metoprolol XL (24 HR) Succ 25 MG TAB.ER.24H PO SCH (08:14)
[2020-10-20] MEDS: Cholecalciferol (D-3) 1,000 UNIT (25MCG) TABLET PO SCH (08:14)
[2020-10-20] MEDS: lisinopriL 5 MG TABLET PO SCH (08:14)
[2020-10-20] MEDS: Furosemide 20 MG/2 ML VIAL IVP SCH (08:14)
[2020-10-20] MEDS ORDERED: Perflutren Lipid Microsphere 1.3 ML in 0.9 % Sodium Chloride 8.7 ML IVP PRN (11:36)
[2020-10-20] MEDS ORDERED: *HR* Warfarin 2 MG TABLET PO ONE (18:00)
[2020-10-21 05:46] LABS: INR 2.7; Prothrombin Time 30.7 Seconds (9.4-12.1)
[2020-10-21] MEDS: Furosemide 20 MG/2 ML VIAL IVP SCH (08:05)
[2020-10-21] MEDS: Cholecalciferol (D-3) 1,000 UNIT (25MCG) TABLET PO SCH (08:05)
[2020-10-21] MEDS: Metoprolol XL (24 HR) Succ 25 MG TAB.ER.24H PO SCH (08:05)
[2020-10-21] MEDS: lisinopriL 5 MG TABLET PO SCH (08:06)
[2020-10-21] MEDS: Cyanocobalamin (B-12) 1,000 MCG TABLET PO SCH (08:06)
[2020-10-21 08:59] LABS: White Blood Count 4.7 K/mcL (4.3-11.1)
[2020-10-21 09:01] LABS: Hematocrit 29.4 % (35.3-44.9); Immature Platelets 4.1 % (1.1-6.1); Mean Corpuscular HGB Conc 30.6 g/dL (31.6-35.5); Mean Corpuscular Hemoglobin 23.4 pg (28.0-33.3); Mean Corpuscular Volume 76.4 fL (83.0-100.0); Mean Platelet Volume 11.4 fL (9.4-12.4); Red Blood Count 3.85 M/mcL (3.82-4.97); Red Cell Distribution Width 19.2 % (11.5-14.5)
[2020-10-21 09:20] LABS: Alanine Aminotransferase 6 Units/L (7-52); Albumin 3.4 g/dL (3.5-5.7); Albumin/Globulin Ratio 1.2 (1.1-2.2); Alkaline Phosphatase 95 Units/L (34-104); Aspartate Amino Transferase 17 Units/L (13-39); BUN/Creatinine Ratio 23 (6-26); Bilirubin,Total 1.2 mg/dL (0.3-1.0); Blood Urea Nitrogen 18 mg/dL (8-23); Calcium 8.8 mg/dL (8.6-10.3); Carbon Dioxide 29 mEq/L (23-29); Chloride 103 mEq/L (98-107); Globulin 2.9 g/dL (2.4-3.5); Glucose 91 mg/dL (70-105); Osmolality,Calculated 287 (280-300); Potassium 4.1 mEq/L (3.5-5.1); Sodium 138 mEq/L (136-145); Total Protein 6.3 g/dL (6.4-8.9); eGFR For African Americans > 60 (> 60); eGFR For Non-African Americans > 60 (> 60)
[2020-10-21] MEDS ORDERED: Furosemide 20 MG/2 ML VIAL IVP ONE (10:16)
[2020-10-21] MEDS: Furosemide 40 MG/4 ML VIAL IVP SCH (17:36)
[2020-10-21] MEDS ORDERED: *HR* Warfarin 3 MG TABLET PO ONE (18:00)
[2020-10-22 02:02] LABS: INR 3.2
[2020-10-22 02:09] LABS: Alanine Aminotransferase 7 Units/L (7-52); Albumin 3.5 g/dL (3.5-5.7); Albumin/Globulin Ratio 1.3 (1.1-2.2); Alkaline Phosphatase 97 Units/L (34-104); Aspartate Amino Transferase 16 Units/L (13-39); BUN/Creatinine Ratio 20 (6-26); Bilirubin,Total 1.2 mg/dL (0.3-1.0); Blood Urea Nitrogen 18 mg/dL (8-23); Calcium 8.8 mg/dL (8.6-10.3); Carbon Dioxide 30 mEq/L (23-29); Chloride 101 mEq/L (98-107); Globulin 2.8 g/dL (2.4-3.5); Glucose 131 mg/dL (70-105); Osmolality,Calculated 294 (280-300); Potassium 3.5 mEq/L (3.5-5.1); Sodium 140 mEq/L (136-145); Total Protein 6.3 g/dL (6.4-8.9); eGFR For African Americans > 60 (> 60); eGFR For Non-African Americans > 60 (> 60)
[2020-10-22] MEDS: Furosemide 40 MG/4 ML VIAL IVP SCH ×2 (08:20→17:22)
[2020-10-22] MEDS: Cholecalciferol (D-3) 1,000 UNIT (25MCG) TABLET PO SCH (08:20)
[2020-10-22] MEDS: Metoprolol XL (24 HR) Succ 25 MG TAB.ER.24H PO SCH (08:20)
[2020-10-22] MEDS: lisinopriL 5 MG TABLET PO SCH (08:21)
[2020-10-22] MEDS: Cyanocobalamin (B-12) 1,000 MCG TABLET PO SCH (08:21)
[2020-10-22] MEDS ORDERED: Isovue-370 500 ML BOTTLE IVP ONE (12:00)
[2020-10-22] MEDS ORDERED: *HR* Warfarin 2 MG TABLET PO ONE (18:00)
[2020-10-22 19:32] LABS: Adenovirus Not Detected (Not Detect); Bordetella Pertussis Not Detected (Not Detect); Chlamydophila pneumoniae Not Detected (Not Detect); Coronavirus 229E Not Detected (Not Detect); Coronavirus HKU1 Not Detected (Not Detect); Coronavirus NL63 Not Detected (Not Detect); Coronavirus OC43 Not Detected (Not Detect); Human Metapneumovirus Not Detected (Not Detect); Human Rhinovirus/Enterovirus Not Detected (Not Detect); Influenza A Subtype 2009 H1 Not Detected (Not Detect); Influenza B Not Detected (Not Detect); Mycoplasma pneumoniae Not Detected (Not Detect); Parainfluenza Virus 1 Not Detected (Not Detect); Parainfluenza Virus 2 Not Detected (Not Detect); Parainfluenza Virus 3 Not Detected (Not Detect); Parainfluenza Virus 4 Not Detected (Not Detect); Respiratory Syncytial Virus Not Detected (Not Detect); SARS-CoV-2 Not Detected (Not Detect)
[2020-10-23 06:06] LABS: Alanine Aminotransferase 6 Units/L (7-52); Albumin 3.4 g/dL (3.5-5.7); Albumin/Globulin Ratio 1.3 (1.1-2.2); Alkaline Phosphatase 100 Units/L (34-104); Aspartate Amino Transferase 16 Units/L (13-39); BUN/Creatinine Ratio 19 (6-26); Blood Urea Nitrogen 18 mg/dL (8-23); Calcium 8.9 mg/dL (8.6-10.3); Carbon Dioxide 32 mEq/L (23-29); Chloride 99 mEq/L (98-107); Globulin 2.7 g/dL (2.4-3.5); Glucose 90 mg/dL (70-105); Osmolality,Calculated 285 (280-300); Potassium 3.7 mEq/L (3.5-5.1); Sodium 137 mEq/L (136-145); Total Protein 6.1 g/dL (6.4-8.9); eGFR For African Americans > 60 (> 60); eGFR For Non-African Americans 58 (> 60)
[2020-10-23 08:06] LABS: Prothrombin Time 33.7 Seconds (9.4-12.1)
[2020-10-23] MEDS: Cyanocobalamin (B-12) 1,000 MCG TABLET PO SCH (08:37)
[2020-10-23] MEDS: Metoprolol XL (24 HR) Succ 25 MG TAB.ER.24H PO SCH (08:37)
[2020-10-23] MEDS: Furosemide 40 MG/4 ML VIAL IVP SCH (08:37)
[2020-10-23] MEDS: lisinopriL 5 MG TABLET PO SCH (08:37)
[2020-10-23] MEDS: Cholecalciferol (D-3) 1,000 UNIT (25MCG) TABLET PO SCH (08:37)
[2020-10-23 11:31] VITALS: BP 88/49
[2020-10-23] MEDS ORDERED: *HR* Warfarin 2.5 MG TABLET PO ONE (18:00)
== END 2020-10-23 12:35 | disposition other institution (70) | DRG 292 ==
LOC: 3BNU 08:04 → EMEROOARM 08:04 → 3BNU 11:06 → SUATTDRO 10-17 14:54
PROVIDERS: ADMIT Internal Medicine; ATTEND Registered Nurse

== ENCOUNTER 2021-04-10 10:05 | Inpatient (IN) ==
[2021-04-10 10:37] LABS: Basophils % 0.8 %; Eosinophils # 0.2 K/mcL (0.0-0.6); Eosinophils % 4.3 %; Hemoglobin 9.8 g/dL (11.5-15.4); Immature Granulocytes % 0.3 % (0-4); Lymphocytes # 0.7 K/mcL (0.6-4.6); Lymphocytes % 16.5 %; Mean Corpuscular HGB Conc 31.6 g/dL (31.6-35.5); Mean Corpuscular Hemoglobin 25.9 pg (28.0-33.3); Mean Corpuscular Volume 81.8 fL (83.0-100.0); Mean Platelet Volume 11.4 fL (9.4-12.4); Monocytes # 0.6 K/mcL (0.0-1.3); Monocytes % 15.2 %; Neutrophils # 2.5 K/mcL (1.6-8.9); Platelet Count 136 K/mcL (140-400); Red Blood Count 3.79 M/mcL (3.82-4.97); Red Cell Distribution Width 18.4 % (11.5-14.5); Segmented Neutrophils % 62.9 %
[2021-04-10 10:44] LABS: INR 2.1; Prothrombin Time 23.9 Seconds (9.4-12.1)
[2021-04-10 10:58] LABS: BUN/Creatinine Ratio 14 (6-26); Blood Urea Nitrogen 14 mg/dL (8-23); Calcium 8.7 mg/dL (8.6-10.3); Carbon Dioxide 26 mEq/L (23-29); Chloride 103 mEq/L (98-107); Glucose 96 mg/dL (70-105); Osmolality,Calculated 284 (280-300); Potassium 3.7 mEq/L (3.5-5.1); Sodium 137 mEq/L (136-145); Troponin I < 0.03 ng/mL (< 0.04); eGFR For African Americans > 60 (> 60); eGFR For Non-African Americans 55 (> 60)
[2021-04-10] MEDS ORDERED: Isovue-370 500 ML BOTTLE IVP ONE (11:11)
[2021-04-10] MEDS ORDERED: Furosemide 40 MG/4 ML VIAL IVP ONE (12:38)
[2021-04-10] MEDS ORDERED: Nitroglycerin 0.4 MG TAB.SUBL SL STA (12:43)
[2021-04-10 13:18] LABS: Adenovirus Not Detected (Not Detect); Bordetella Pertussis Not Detected (Not Detect); Chlamydophila pneumoniae Not Detected (Not Detect); Coronavirus 229E Not Detected (Not Detect); Coronavirus HKU1 Not Detected (Not Detect); Coronavirus NL63 Not Detected (Not Detect); Coronavirus OC43 Not Detected (Not Detect); Human Metapneumovirus Not Detected (Not Detect); Human Rhinovirus/Enterovirus Not Detected (Not Detect); Influenza A Subtype 2009 H1 Not Detected (Not Detect); Influenza B Not Detected (Not Detect); Mycoplasma pneumoniae Not Detected (Not Detect); Parainfluenza Virus 1 Not Detected (Not Detect); Parainfluenza Virus 2 Not Detected (Not Detect); Parainfluenza Virus 3 Not Detected (Not Detect); Parainfluenza Virus 4 Not Detected (Not Detect); Respiratory Syncytial Virus Not Detected (Not Detect); SARS-CoV-2 Not Detected (Not Detect)
[2021-04-10] MEDS ORDERED: Naloxone 0.4 MG/ML INJ IVP PRN (13:22)
[2021-04-10] MEDS ORDERED: Acetaminophen 325 MG TABLET PO PRN (13:22)
[2021-04-10] MEDS ORDERED: Perflutren Lipid Microsphere 1.3 ML in 0.9 % Sodium Chloride 8.7 ML IVP PRN (13:24)
[2021-04-10] MEDS: *HR* Enoxaparin 30 MG/0.3 ML SYRINGE SQ ONE ×2 (16:01→16:03)
[2021-04-10 17:00] LABS: INR 2.1; Prothrombin Time 23.6 Seconds (9.4-12.1)
[2021-04-10] MEDS ORDERED: Warfarin perPT PO PRN (18:00)
[2021-04-10] MEDS ORDERED: *HR* Warfarin 3 MG TABLET PO ONE (18:00)
[2021-04-11] MEDS ORDERED: Ipratropium/Albuterol Neb 3 ML IH ONE (03:37)
[2021-04-11 06:23] LABS: Basophils % 0.5 %; Eosinophils # 0.1 K/mcL (0.0-0.6); Eosinophils % 3.3 %; Hematocrit 29.3 % (35.3-44.9); Hemoglobin 9.5 g/dL (11.5-15.4); Immature Granulocytes % 0.2 % (0-4); Lymphocytes # 0.6 K/mcL (0.6-4.6); Mean Corpuscular HGB Conc 32.4 g/dL (31.6-35.5); Mean Corpuscular Hemoglobin 26.4 pg (28.0-33.3); Mean Corpuscular Volume 81.4 fL (83.0-100.0); Mean Platelet Volume 10.5 fL (9.4-12.4); Monocytes # 0.6 K/mcL (0.0-1.3); Neutrophils # 2.8 K/mcL (1.6-8.9); Platelet Count 114 K/mcL (140-400); Red Cell Distribution Width 18.3 % (11.5-14.5); White Blood Count 4.3 K/mcL (4.3-11.1)
[2021-04-11 07:16] LABS: Troponin I < 0.03 ng/mL (< 0.04)
[2021-04-11 07:29] LABS: BUN/Creatinine Ratio 15 (6-26); Blood Urea Nitrogen 14 mg/dL (8-23); Calcium 8.4 mg/dL (8.6-10.3); Carbon Dioxide 20 mEq/L (23-29); Chloride 103 mEq/L (98-107); Chol/HDL Ratio 2.6 (0-4.9); Cholesterol 88 mg/dL (< 200); Glucose 81 mg/dL (70-105); HDL Cholesterol 34 mg/dL (40-59); LDL Cholesterol,Calculated 45 mg/dL (< 100); Magnesium 2.1 mg/dL (1.6-2.6); Osmolality,Calculated 282 (280-300); Potassium 3.9 mEq/L (3.5-5.1); Sodium 136 mEq/L (136-145); Triglycerides 46 mg/dL (< 150); eGFR For African Americans > 60 (> 60); eGFR For Non-African Americans 58 (> 60)
[2021-04-11] MEDS: Cholecalciferol (D-3) 1,000 UNIT (25MCG) TABLET PO SCH (11:11)
[2021-04-11] MEDS: Furosemide 40 MG/4 ML VIAL IVP SCH (11:12)
[2021-04-11] MEDS: Metoprolol XL (24 HR) Succ 25 MG TAB.ER.24H PO SCH (11:12)
[2021-04-11] MEDS: Cyanocobalamin (B-12) 1,000 MCG TABLET PO SCH (11:12)
[2021-04-11 11:44] LABS: INR 2.5; Prothrombin Time 28.3 Seconds (9.4-12.1)
[2021-04-11] MEDS ORDERED: *HR* Warfarin 5 MG TABLET PO ONE (18:00)
[2021-04-11] MEDS: Ondansetron 4 MG/2 ML VIAL IVP PRN (18:35)
[2021-04-12 04:26] LABS: INR 3.4; Prothrombin Time 37.9 Seconds (9.4-12.1)
[2021-04-12 04:38] LABS: BUN/Creatinine Ratio 16 (6-26); Blood Urea Nitrogen 16 mg/dL (8-23); Carbon Dioxide 28 mEq/L (23-29); Chloride 102 mEq/L (98-107); Glucose 96 mg/dL (70-105); Magnesium 2.1 mg/dL (1.6-2.6); Osmolality,Calculated 287 (280-300); Phosphorous 3.9 mg/dL (2.7-4.5); Potassium 4.1 mEq/L (3.5-5.1); Sodium 138 mEq/L (136-145); eGFR For African Americans > 60 (> 60); eGFR For Non-African Americans 56 (> 60)
[2021-04-12] MEDS: Ondansetron 4 MG/2 ML VIAL IVP PRN (09:52)
[2021-04-12] MEDS: lisinopriL 5 MG TABLET PO SCH (09:53)
[2021-04-12] MEDS: Furosemide 40 MG/4 ML VIAL IVP SCH ×2 (09:53→20:22)
[2021-04-12] MEDS: Metoprolol XL (24 HR) Succ 25 MG TAB.ER.24H PO SCH (09:53)
[2021-04-12] MEDS: Spironolactone 25 MG TABLET PO SCH (09:54)
[2021-04-12] MEDS: Ascorbic Acid 500 MG TABLET PO SCH (09:54)
[2021-04-12] MEDS: Cyanocobalamin (B-12) 1,000 MCG TABLET PO SCH (09:54)
[2021-04-12] MEDS: Cholecalciferol (D-3) 1,000 UNIT (25MCG) TABLET PO SCH (09:54)
[2021-04-13 03:33] LABS: BUN/Creatinine Ratio 17 (6-26); Blood Urea Nitrogen 17 mg/dL (8-23); Carbon Dioxide 28 mEq/L (23-29); Chloride 100 mEq/L (98-107); Glucose 82 mg/dL (70-105); Magnesium 1.9 mg/dL (1.6-2.6); Osmolality,Calculated 287 (280-300); Phosphorous 3.3 mg/dL (2.7-4.5); Potassium 3.5 mEq/L (3.5-5.1); Sodium 138 mEq/L (136-145); eGFR For African Americans > 60 (> 60); eGFR For Non-African Americans 52 (> 60)
[2021-04-13 03:40] LABS: Prothrombin Time 61.3 Seconds (9.4-12.1)
[2021-04-13 03:41] LABS: INR 5.6
[2021-04-13] MEDS: Cholecalciferol (D-3) 1,000 UNIT (25MCG) TABLET PO SCH (11:36)
[2021-04-13] MEDS: Furosemide 40 MG/4 ML VIAL IVP SCH (11:37)
[2021-04-13] MEDS: Spironolactone 25 MG TABLET PO SCH (11:37)
[2021-04-13] MEDS: Ascorbic Acid 500 MG TABLET PO SCH (11:37)
[2021-04-13] MEDS: lisinopriL 5 MG TABLET PO SCH (11:37)
[2021-04-13] MEDS: Metoprolol XL (24 HR) Succ 25 MG TAB.ER.24H PO SCH (11:37)
[2021-04-13] MEDS: Cyanocobalamin (B-12) 1,000 MCG TABLET PO SCH (11:37)
[2021-04-13] MEDS: Furosemide 20 MG TABLET PO SCH (16:56)
[2021-04-14 03:00] LABS: Basophils % 0.5 %; Eosinophils # 0.2 K/mcL (0.0-0.6); Eosinophils % 4.4 %; Hematocrit 29.8 % (35.3-44.9); Hemoglobin 9.6 g/dL (11.5-15.4); Immature Granulocytes % 0.2 % (0-4); Lymphocytes # 0.6 K/mcL (0.6-4.6); Lymphocytes % 14.5 %; Mean Corpuscular HGB Conc 32.2 g/dL (31.6-35.5); Mean Corpuscular Hemoglobin 26.4 pg (28.0-33.3); Mean Corpuscular Volume 82.1 fL (83.0-100.0); Mean Platelet Volume 10.7 fL (9.4-12.4); Monocytes # 0.7 K/mcL (0.0-1.3); Neutrophils # 2.6 K/mcL (1.6-8.9); Platelet Count 127 K/mcL (140-400); Red Blood Count 3.63 M/mcL (3.82-4.97); Red Cell Distribution Width 18.1 % (11.5-14.5); Segmented Neutrophils % 64.4 %; White Blood Count 4.1 K/mcL (4.3-11.1)
[2021-04-14 03:13] LABS: BUN/Creatinine Ratio 17 (6-26); Blood Urea Nitrogen 17 mg/dL (8-23); Calcium 8.9 mg/dL (8.6-10.3); Carbon Dioxide 31 mEq/L (23-29); Chloride 102 mEq/L (98-107); Glucose 86 mg/dL (70-105); Osmolality,Calculated 289 (280-300); Potassium 3.5 mEq/L (3.5-5.1); Sodium 139 mEq/L (136-145); eGFR For African Americans > 60 (> 60); eGFR For Non-African Americans 55 (> 60)
[2021-04-14 03:14] LABS: INR 6.1; Prothrombin Time 67.5 Seconds (9.4-12.1)
[2021-04-14] MEDS: Ascorbic Acid 500 MG TABLET PO SCH (08:14)
[2021-04-14] MEDS: Spironolactone 25 MG TABLET PO SCH (08:14)
[2021-04-14] MEDS: lisinopriL 5 MG TABLET PO SCH (08:14)
[2021-04-14] MEDS: Metoprolol XL (24 HR) Succ 25 MG TAB.ER.24H PO SCH (08:14)
[2021-04-14] MEDS: Cholecalciferol (D-3) 1,000 UNIT (25MCG) TABLET PO SCH (08:14)
[2021-04-14] MEDS: Cyanocobalamin (B-12) 1,000 MCG TABLET PO SCH (08:14)
[2021-04-14] MEDS: Furosemide 20 MG TABLET PO SCH ×2 (08:14→16:24)
[2021-04-14 10:45] VITALS: BP 101/59; PULSE 60; TEMP 98.1
[2021-04-14 12:03] VITALS: O2SAT 89
== END 2021-04-14 16:48 | disposition home or self-care (01) | DRG 291 ==
LOC: EMEROOARM 10:05 → 3ANU 10:05 → SUATTDRO 04-12 14:30
PROVIDERS: ADMIT Internal Medicine; ATTEND Family Medicine

== ENCOUNTER 2021-06-04 01:58 | Inpatient (IN) ==
[2021-06-04 02:57] LABS: Basophils % 0.7 %; Eosinophils # 0.2 K/mcL (0.0-0.6); Eosinophils % 4.7 %; Hematocrit 29.9 % (35.3-44.9); Hemoglobin 9.7 g/dL (11.5-15.4); Immature Granulocytes % 0.2 % (0-4); Lymphocytes # 0.5 K/mcL (0.6-4.6); Lymphocytes % 10.6 %; Mean Corpuscular HGB Conc 32.4 g/dL (31.6-35.5); Mean Corpuscular Hemoglobin 26.6 pg (28.0-33.3); Mean Corpuscular Volume 81.9 fL (83.0-100.0); Mean Platelet Volume 10.1 fL (9.4-12.4); Monocytes # 0.7 K/mcL (0.0-1.3); Monocytes % 15.1 %; Neutrophils # 3.1 K/mcL (1.6-8.9); Platelet Count 135 K/mcL (140-400); Red Blood Count 3.65 M/mcL (3.82-4.97); Segmented Neutrophils % 68.7 %; White Blood Count 4.5 K/mcL (4.3-11.1)
[2021-06-04 03:04] LABS: INR 3.8; Prothrombin Time 42.3 Seconds (9.4-12.1)
[2021-06-04 03:07] LABS: Activated Partial Thrombo Time 54.7 Seconds (26.0-36.0)
[2021-06-04 03:18] LABS: BUN/Creatinine Ratio 18 (6-26); Blood Urea Nitrogen 17 mg/dL (8-23); Carbon Dioxide 27 mEq/L (23-29); Chloride 101 mEq/L (98-107); Glucose 95 mg/dL (70-105); Osmolality,Calculated 283 (280-300); Potassium 3.9 mEq/L (3.5-5.1); Sodium 136 mEq/L (136-145); eGFR For African Americans > 60 (> 60); eGFR For Non-African Americans 58 (> 60)
[2021-06-04] MEDS ORDERED: Isovue-370 500 ML BOTTLE IVP ONE (06:49)
[2021-06-04] MEDS ORDERED: Ondansetron 4 MG/2 ML VIAL IVP PRN (08:58)
[2021-06-04] MEDS ORDERED: Naloxone 0.4 MG/ML INJ IVP PRN (08:58)
[2021-06-04] MEDS: Pantoprazole 40 MG VIAL IVP SCH ×3 (12:31→18:14)
[2021-06-04 15:10] LABS: Hematocrit 29.5 % (35.3-44.9); Hemoglobin 9.4 g/dL (11.5-15.4)
[2021-06-04 16:32] LABS: Hematocrit 32.5 % (35.3-44.9); Hemoglobin 10.2 g/dL (11.5-15.4)
[2021-06-05] MEDS ORDERED: Dextrose Gel 15 GM/37.5 ML TUBE PO PRN (00:03)
[2021-06-05] MEDS ORDERED: D5% in Water 1,000 ML IVC PRN (00:03)
[2021-06-05] MEDS ORDERED: *HR* Dextrose 50 % in Water (Syg) 50 ML SYRINGE IVP PRN (00:03)
[2021-06-05] MEDS: Dextrose Gel 15 GM/37.5 ML TUBE PO PRN ×2 (00:13→01:13)
[2021-06-05 01:34] LABS: Basophils % 0.7 %; Eosinophils # 0.2 K/mcL (0.0-0.6); Eosinophils % 4.6 %; Hematocrit 31.1 % (35.3-44.9); Immature Granulocytes % 0.2 % (0-4); Lymphocytes # 0.6 K/mcL (0.6-4.6); Lymphocytes % 12.8 %; Mean Corpuscular HGB Conc 32.2 g/dL (31.6-35.5); Mean Corpuscular Hemoglobin 26.5 pg (28.0-33.3); Mean Corpuscular Volume 82.5 fL (83.0-100.0); Mean Platelet Volume 10.9 fL (9.4-12.4); Monocytes # 0.6 K/mcL (0.0-1.3); Monocytes % 13.2 %; Neutrophils # 3.1 K/mcL (1.6-8.9); Platelet Count 144 K/mcL (140-400); Red Blood Count 3.77 M/mcL (3.82-4.97); Red Cell Distribution Width 18.3 % (11.5-14.5); Segmented Neutrophils % 68.5 %; White Blood Count 4.5 K/mcL (4.3-11.1)
[2021-06-05 01:51] LABS: BUN/Creatinine Ratio 18 (6-26); Blood Urea Nitrogen 15 mg/dL (8-23); Carbon Dioxide 23 mEq/L (23-29); Chloride 104 mEq/L (98-107); Glucose 79 mg/dL (70-105); Osmolality,Calculated 282 (280-300); Potassium 3.9 mEq/L (3.5-5.1); Sodium 136 mEq/L (136-145); eGFR For African Americans > 60 (> 60); eGFR For Non-African Americans > 60 (> 60)
[2021-06-05 02:22] LABS: INR 3.1; Prothrombin Time 33.8 Seconds (9.4-12.1)
[2021-06-05] MEDS: Pantoprazole 40 MG VIAL IVP SCH ×2 (06:09→17:03)
[2021-06-05 15:28] LABS: Hematocrit 32.6 % (35.3-44.9); Hemoglobin 10.4 g/dL (11.5-15.4)
[2021-06-06 01:12] LABS: Hematocrit 30.9 % (35.3-44.9); Hematocrit 31.2 % (35.3-44.9); Hemoglobin 9.7 g/dL (11.5-15.4); Hemoglobin 9.8 g/dL (11.5-15.4); Mean Corpuscular HGB Conc 31.1 g/dL (31.6-35.5); Mean Corpuscular Hemoglobin 25.6 pg (28.0-33.3); Mean Corpuscular Volume 82.3 fL (83.0-100.0); Mean Platelet Volume 10.5 fL (9.4-12.4); Platelet Count 147 K/mcL (140-400); Red Blood Count 3.79 M/mcL (3.82-4.97); Red Cell Distribution Width 18.3 % (11.5-14.5); White Blood Count 4.4 K/mcL (4.3-11.1)
[2021-06-06 01:39] LABS: BUN/Creatinine Ratio 19 (6-26); Blood Urea Nitrogen 16 mg/dL (8-23); Carbon Dioxide 23 mEq/L (23-29); Chloride 105 mEq/L (98-107); Glucose 96 mg/dL (70-105); Osmolality,Calculated 285 (280-300); Potassium 3.9 mEq/L (3.5-5.1); Sodium 137 mEq/L (136-145); eGFR For African Americans > 60 (> 60); eGFR For Non-African Americans > 60 (> 60)
[2021-06-06] MEDS: Pantoprazole 40 MG VIAL IVP SCH ×2 (05:04→16:58)
[2021-06-06] MEDS: Ascorbic Acid 500 MG TABLET PO SCH ×2 (07:21→07:24)
[2021-06-06] MEDS: Cyanocobalamin (B-12) 1,000 MCG TABLET PO SCH ×2 (07:22→07:24)
[2021-06-06 14:11] LABS: INR 3.4; Prothrombin Time 37.3 Seconds (9.4-12.1)
[2021-06-06 17:34] LABS: Hematocrit 31.1 % (35.3-44.9); Hemoglobin 9.8 g/dL (11.5-15.4)
[2021-06-06] MEDS ORDERED: Warfarin perPT PO PRN ×2 (18:00→18:01)
[2021-06-07 04:48] LABS: Basophils % 0.7 %; Eosinophils # 0.3 K/mcL (0.0-0.6); Hematocrit 31.3 % (35.3-44.9); Hemoglobin 9.9 g/dL (11.5-15.4); Immature Granulocytes % 0.5 % (0-4); Lymphocytes # 0.7 K/mcL (0.6-4.6); Lymphocytes % 16.3 %; Mean Corpuscular HGB Conc 31.6 g/dL (31.6-35.5); Mean Corpuscular Hemoglobin 26.1 pg (28.0-33.3); Mean Corpuscular Volume 82.4 fL (83.0-100.0); Mean Platelet Volume 10.5 fL (9.4-12.4); Monocytes # 0.6 K/mcL (0.0-1.3); Monocytes % 14.2 %; Neutrophils # 2.6 K/mcL (1.6-8.9); Platelet Count 143 K/mcL (140-400); Red Cell Distribution Width 18.3 % (11.5-14.5); Segmented Neutrophils % 61.3 %; White Blood Count 4.3 K/mcL (4.3-11.1)
[2021-06-07 04:53] LABS: INR 3.3; Prothrombin Time 36.5 Seconds (9.4-12.1)
[2021-06-07 05:01] LABS: BUN/Creatinine Ratio 16 (6-26); Blood Urea Nitrogen 13 mg/dL (8-23); Calcium 8.9 mg/dL (8.6-10.3); Carbon Dioxide 24 mEq/L (23-29); Chloride 105 mEq/L (98-107); Glucose 89 mg/dL (70-105); Osmolality,Calculated 282 (280-300); Potassium 3.9 mEq/L (3.5-5.1); Sodium 136 mEq/L (136-145); eGFR For African Americans > 60 (> 60); eGFR For Non-African Americans > 60 (> 60)
[2021-06-07] MEDS: Pantoprazole 40 MG VIAL IVP SCH (05:27)
[2021-06-07] MEDS: Cyanocobalamin (B-12) 1,000 MCG TABLET PO SCH (08:42)
[2021-06-07] MEDS: Ascorbic Acid 500 MG TABLET PO SCH (08:42)
[2021-06-07 14:24] VITALS: BP 115/71; PULSE 67; TEMP 97.9; O2SAT 95
== END 2021-06-07 18:27 | disposition home health service (06) | DRG 378 ==
LOC: 3ANU 01:58 → EMEROOARM 01:58 → 3ANU 10:30
PROVIDERS: ADMIT Student in an Organized Health Care Education/Training Program; ATTEND Student in an Organized Health Care Education/Training Program

== ENCOUNTER 2021-07-11 05:25 | Inpatient (IN) ==
[2021-07-11] MEDS ORDERED: Clindamycin 600 MG/50 ML 600 MG/50 ML IV.SOLN IVPB STA ×2 (05:47→06:21)
[2021-07-11] MEDS ORDERED: cefTRIAXone 1,000 MG in Water for inj. (sterile) 10 ML IVP ONE (05:47)
[2021-07-11 06:25] LABS: Basophils % 0.2 %; Eosinophils % 0.3 %; Hematocrit 30.2 % (35.3-44.9); Hemoglobin 9.4 g/dL (11.5-15.4); Immature Granulocytes % 0.5 % (0-4); Lymphocytes # 0.7 K/mcL (0.6-4.6); Mean Corpuscular HGB Conc 31.1 g/dL (31.6-35.5); Mean Corpuscular Hemoglobin 25.5 pg (28.0-33.3); Mean Corpuscular Volume 81.8 fL (83.0-100.0); Mean Platelet Volume 10.9 fL (9.4-12.4); Monocytes # 0.9 K/mcL (0.0-1.3); Monocytes % 9.2 %; Neutrophils # 7.8 K/mcL (1.6-8.9); Platelet Count 154 K/mcL (140-400); Red Blood Count 3.69 M/mcL (3.82-4.97); Red Cell Distribution Width 17.7 % (11.5-14.5); Segmented Neutrophils % 82.8 %
[2021-07-11 06:26] LABS: White Blood Count 9.4 K/mcL (4.3-11.1)
[2021-07-11] MEDS ORDERED: Isovue-370 500 ML BOTTLE IVP ONE (09:04)
[2021-07-11 09:18] LABS: Influenza A PCR Negative (Negative); Influenza B PCR Negative (Negative); Resp. Syncytial Virus PCR Negative (Negative)
[2021-07-11 09:30] LABS: SARS-CoV-2 by PCR (In House) Negative (Negative)
[2021-07-11 09:45] LABS: Calcium 9.2 mg/dL (8.6-10.3); Potassium 3.8 mEq/L (3.5-5.1)
[2021-07-11] MEDS ORDERED: Mag Hydrox/Al Hydrox/Simeth 30 ML UDC PO PRN (10:10)
[2021-07-11] MEDS ORDERED: Naloxone 0.4 MG/ML INJ IVP PRN (10:10)
[2021-07-11] MEDS ORDERED: Ondansetron 4 MG/2 ML VIAL IVP PRN (10:10)
[2021-07-11] MEDS ORDERED: MOM Conc 10 ML UD.LIQ PO PRN (10:10)
[2021-07-11] MEDS ORDERED: Melatonin 3 MG TABLET PO PRN (10:10)
[2021-07-11] MEDS ORDERED: Acetaminophen 325 MG TABLET PO PRN (12:00)
[2021-07-11 14:35] LABS: INR 3.5; Prothrombin Time 39.1 Seconds (9.4-12.1)
[2021-07-11] MEDS: Clotrimazole 1% CRM 15 GM TUBE TP SCH ×2 (15:13→20:32)
[2021-07-11] MEDS ORDERED: 0.9 % Sodium Chloride 1,000 ML IVC SCH (16:00)
[2021-07-11] MEDS: Clindamycin 600 MG/50 ML 600 MG/50 ML IV.SOLN IVPB SCH ×2 (17:53→23:23)
[2021-07-11] MEDS ORDERED: *HR* Warfarin 2.5 MG TABLET PO ONE (18:00)
[2021-07-11] MEDS ORDERED: Warfarin perPT PO PRN (18:00)
[2021-07-12 03:10] LABS: Hematocrit 25.7 % (35.3-44.9); Hemoglobin 8.1 g/dL (11.5-15.4); Mean Corpuscular HGB Conc 31.5 g/dL (31.6-35.5); Mean Corpuscular Hemoglobin 25.7 pg (28.0-33.3); Mean Corpuscular Volume 81.6 fL (83.0-100.0); Mean Platelet Volume 11.4 fL (9.4-12.4); Platelet Count 127 K/mcL (140-400); Red Blood Count 3.15 M/mcL (3.82-4.97); Red Cell Distribution Width 17.6 % (11.5-14.5)
[2021-07-12 03:22] LABS: Calcium 8.4 mg/dL (8.6-10.3); Magnesium 2.1 mg/dL (1.6-2.6); Potassium 4.1 mEq/L (3.5-5.1)
[2021-07-12] MEDS ORDERED: cefTRIAXone 1,000 MG in 0.9 % Sodium Chloride Mini Bag 100 ML IVPB SCH (06:00)
[2021-07-12] MEDS ORDERED: Furosemide 20 MG TABLET PO SCH (09:00)
[2021-07-12] MEDS ORDERED: Spironolactone 25 MG TABLET PO SCH (09:00)
[2021-07-12] MEDS: Clindamycin 600 MG/50 ML 600 MG/50 ML IV.SOLN IVPB SCH ×2 (09:50→16:46)
[2021-07-12] MEDS: Clotrimazole 1% CRM 15 GM TUBE TP SCH ×2 (09:58→21:28)
[2021-07-12 11:35] LABS: Prothrombin Time 55.5 Seconds (9.4-12.1)
[2021-07-12] MEDS ORDERED: Melatonin 3 MG TABLET PO PRN (19:30)
[2021-07-12] MEDS ORDERED: MOM Conc 10 ML UD.LIQ PO PRN (19:30)
[2021-07-12] MEDS ORDERED: Ondansetron 4 MG/2 ML VIAL IVP PRN (19:30)
[2021-07-12] MEDS ORDERED: Acetaminophen 325 MG TABLET PO PRN (19:30)
[2021-07-12] MEDS ORDERED: Naloxone 0.4 MG/ML INJ IVP PRN (19:30)
[2021-07-12] MEDS ORDERED: Mag Hydrox/Al Hydrox/Simeth 30 ML UDC PO PRN (19:30)
[2021-07-12] MEDS ORDERED: Warfarin perPT PO PRN (19:30)
[2021-07-13] MEDS: Clindamycin 600 MG/50 ML 600 MG/50 ML IV.SOLN IVPB SCH ×4 (00:56→23:37)
[2021-07-13] MEDS: cefTRIAXone 1,000 MG in 0.9 % Sodium Chloride Mini Bag 100 ML IVPB SCH (06:02)
[2021-07-13] MEDS: Spironolactone 25 MG TABLET PO SCH (07:36)
[2021-07-13] MEDS: Clotrimazole 1% CRM 15 GM TUBE TP SCH ×2 (07:37→20:26)
[2021-07-13] MEDS: Furosemide 20 MG TABLET PO SCH (07:38)
[2021-07-13 08:17] LABS: Basophils % 0.4 %; Eosinophils # 0.3 K/mcL (0.0-0.6); Hematocrit 26.9 % (35.3-44.9); Hemoglobin 8.4 g/dL (11.5-15.4); Immature Granulocytes % 0.2 % (0-4); Lymphocytes # 0.6 K/mcL (0.6-4.6); Lymphocytes % 10.7 %; Mean Corpuscular HGB Conc 31.2 g/dL (31.6-35.5); Mean Corpuscular Hemoglobin 25.2 pg (28.0-33.3); Mean Corpuscular Volume 80.8 fL (83.0-100.0); Mean Platelet Volume 10.7 fL (9.4-12.4); Monocytes # 0.8 K/mcL (0.0-1.3); Monocytes % 15.2 %; Neutrophils # 3.6 K/mcL (1.6-8.9); Platelet Count 133 K/mcL (140-400); Red Blood Count 3.33 M/mcL (3.82-4.97); Red Cell Distribution Width 17.8 % (11.5-14.5); Segmented Neutrophils % 68.5 %; White Blood Count 5.3 K/mcL (4.3-11.1)
[2021-07-13 08:28] LABS: Calcium 8.4 mg/dL (8.6-10.3); Potassium 3.7 mEq/L (3.5-5.1)
[2021-07-13] MEDS: lisinopriL 5 MG TABLET PO SCH (14:15)
[2021-07-13] MEDS: Metoprolol XL (24 HR) Succ 25 MG TAB.ER.24H PO SCH (14:15)
[2021-07-14 01:58] LABS: Basophils % 0.6 %; Eosinophils # 0.2 K/mcL (0.0-0.6); Eosinophils % 4.2 %; Hematocrit 27.9 % (35.3-44.9); Hemoglobin 8.8 g/dL (11.5-15.4); Immature Granulocytes % 0.4 % (0-4); Lymphocytes # 0.4 K/mcL (0.6-4.6); Lymphocytes % 7.7 %; Mean Corpuscular HGB Conc 31.5 g/dL (31.6-35.5); Mean Corpuscular Volume 82.3 fL (83.0-100.0); Monocytes # 0.8 K/mcL (0.0-1.3); Monocytes % 14.5 %; Neutrophils # 3.9 K/mcL (1.6-8.9); Platelet Count 161 K/mcL (140-400); Red Blood Count 3.39 M/mcL (3.82-4.97); Red Cell Distribution Width 18.1 % (11.5-14.5); Segmented Neutrophils % 72.6 %; White Blood Count 5.3 K/mcL (4.3-11.1)
[2021-07-14 02:19] LABS: BUN/Creatinine Ratio 22 (6-26); Blood Urea Nitrogen 22 mg/dL (8-23); Calcium 8.7 mg/dL (8.6-10.3); Carbon Dioxide 25 mEq/L (23-29); Chloride 105 mEq/L (98-107); Glucose 119 mg/dL (70-105); Osmolality,Calculated 294 (280-300); Potassium 3.8 mEq/L (3.5-5.1); Sodium 140 mEq/L (136-145); eGFR For African Americans > 60 (> 60); eGFR For Non-African Americans 55 (> 60)
[2021-07-14 02:25] LABS: INR 5.5
[2021-07-14] MEDS: cefTRIAXone 1,000 MG in 0.9 % Sodium Chloride Mini Bag 100 ML IVPB SCH (05:36)
[2021-07-14] MEDS: lisinopriL 5 MG TABLET PO SCH (07:37)
[2021-07-14] MEDS: Clindamycin 600 MG/50 ML 600 MG/50 ML IV.SOLN IVPB SCH (07:37)
[2021-07-14] MEDS: Furosemide 20 MG TABLET PO SCH (07:37)
[2021-07-14] MEDS: Metoprolol XL (24 HR) Succ 25 MG TAB.ER.24H PO SCH (07:37)
[2021-07-14] MEDS: Clotrimazole 1% CRM 15 GM TUBE TP SCH ×2 (07:38→20:09)
[2021-07-14] MEDS: Spironolactone 25 MG TABLET PO SCH (08:26)
[2021-07-14] MEDS: Lactobacillus 1 EACH CAP.SPRINK PO SCH (17:14)
[2021-07-15 01:55] LABS: Basophils % 0.8 %; Eosinophils # 0.3 K/mcL (0.0-0.6); Eosinophils % 5.9 %; Hematocrit 27.7 % (35.3-44.9); Hemoglobin 8.8 g/dL (11.5-15.4); Immature Granulocytes % 0.4 % (0-4); Lymphocytes # 0.5 K/mcL (0.6-4.6); Lymphocytes % 9.4 %; Mean Corpuscular HGB Conc 31.8 g/dL (31.6-35.5); Mean Corpuscular Volume 81.7 fL (83.0-100.0); Mean Platelet Volume 10.5 fL (9.4-12.4); Monocytes # 0.8 K/mcL (0.0-1.3); Monocytes % 14.8 %; Neutrophils # 3.5 K/mcL (1.6-8.9); Platelet Count 174 K/mcL (140-400); Red Blood Count 3.39 M/mcL (3.82-4.97); Red Cell Distribution Width 18.2 % (11.5-14.5); Segmented Neutrophils % 68.7 %; White Blood Count 5.1 K/mcL (4.3-11.1)
[2021-07-15 02:12] LABS: INR 4.5; Prothrombin Time 49.1 Seconds (9.4-12.1)
[2021-07-15 02:14] LABS: BUN/Creatinine Ratio 26 (6-26); Blood Urea Nitrogen 19 mg/dL (8-23); Calcium 8.9 mg/dL (8.6-10.3); Carbon Dioxide 24 mEq/L (23-29); Chloride 107 mEq/L (98-107); Glucose 126 mg/dL (70-105); Osmolality,Calculated 292 (280-300); Potassium 3.9 mEq/L (3.5-5.1); Sodium 139 mEq/L (136-145); eGFR For African Americans > 60 (> 60); eGFR For Non-African Americans > 60 (> 60)
[2021-07-15 07:03] VITALS: BP 121/63; PULSE 65; TEMP 97.6; O2SAT 99
[2021-07-15] MEDS: Spironolactone 25 MG TABLET PO SCH (07:31)
[2021-07-15] MEDS: lisinopriL 5 MG TABLET PO SCH (07:31)
[2021-07-15] MEDS: Metoprolol XL (24 HR) Succ 25 MG TAB.ER.24H PO SCH (07:31)
[2021-07-15] MEDS: Furosemide 20 MG TABLET PO SCH (07:31)
[2021-07-15] MEDS: Lactobacillus 1 EACH CAP.SPRINK PO SCH (07:32)
[2021-07-15] MEDS ORDERED: Furosemide 20 MG/2 ML VIAL IVP ONE (09:01)
[2021-07-15 13:15] LABS: Influenza A PCR Negative (Negative); Influenza B PCR Negative (Negative); Resp. Syncytial Virus PCR Negative (Negative)
[2021-07-15 13:28] LABS: SARS-CoV-2 by PCR (In House) Negative (Negative)
== END 2021-07-15 12:43 | DRG 603 ==
LOC: EMEROOARM 05:25 → SUATTDRO 13:23 → 3ANU 13:23 → 2NNU 07-12 19:01 → 3BNU 07-13 11:54
PROVIDERS: ADMIT Internal Medicine; ATTEND Internal Medicine

== ENCOUNTER 2021-07-31 09:24 | Inpatient (IN) ==
[2021-07-31 11:22] LABS: Basophils % 0.4 %; Eosinophils # 0.2 K/mcL (0.0-0.6); Eosinophils % 4.8 %; Immature Granulocytes % 0.4 % (0-4); Lymphocytes # 0.5 K/mcL (0.6-4.6); Lymphocytes % 10.5 %; Mean Corpuscular Volume 80.6 fL (83.0-100.0); Mean Platelet Volume 10.9 fL (9.4-12.4); Monocytes # 0.7 K/mcL (0.0-1.3); Monocytes % 13.3 %; Neutrophils # 3.5 K/mcL (1.6-8.9); Platelet Count 158 K/mcL (140-400); Red Cell Distribution Width 17.2 % (11.5-14.5); Segmented Neutrophils % 70.6 %
[2021-07-31 11:41] LABS: Alanine Aminotransferase 7 Units/L (7-52); Albumin 3.8 g/dL (3.5-5.7); Albumin/Globulin Ratio 1.3 (1.1-2.2); Alkaline Phosphatase 101 Units/L (34-104); Aspartate Amino Transferase 21 Units/L (13-39); BUN/Creatinine Ratio 16 (6-26); Bilirubin,Direct 0.7 mg/dL (0.0-0.2); Bilirubin,Indirect 1.4 mg/dL (0.0-1.0); Bilirubin,Total 2.1 mg/dL (0.3-1.0); Blood Urea Nitrogen 16 mg/dL (8-23); Calcium 8.8 mg/dL (8.6-10.3); Carbon Dioxide 27 mEq/L (23-29); Chloride 100 mEq/L (98-107); Globulin 2.9 g/dL (2.4-3.5); Glucose 84 mg/dL (70-105); Osmolality,Calculated 288 (280-300); Potassium 3.7 mEq/L (3.5-5.1); Sodium 139 mEq/L (136-145); Total Protein 6.7 g/dL (6.4-8.9); Troponin I 0.03 ng/mL (< 0.04); eGFR For African Americans > 60 (> 60); eGFR For Non-African Americans 52 (> 60)
[2021-07-31 12:29] LABS: Adenovirus Not Detected (Not Detect); Bordetella Pertussis Not Detected (Not Detect); Chlamydophila pneumoniae Not Detected (Not Detect); Coronavirus 229E Not Detected (Not Detect); Coronavirus HKU1 Not Detected (Not Detect); Coronavirus NL63 Not Detected (Not Detect); Coronavirus OC43 Not Detected (Not Detect); Human Metapneumovirus Not Detected (Not Detect); Human Rhinovirus/Enterovirus Not Detected (Not Detect); Influenza A Subtype 2009 H1 Not Detected (Not Detect); Influenza B Not Detected (Not Detect); Mycoplasma pneumoniae Not Detected (Not Detect); Parainfluenza Virus 1 Not Detected (Not Detect); Parainfluenza Virus 2 Not Detected (Not Detect); Parainfluenza Virus 3 Not Detected (Not Detect); Parainfluenza Virus 4 Not Detected (Not Detect); Respiratory Syncytial Virus Not Detected (Not Detect); SARS-CoV-2 Not Detected (Not Detect)
[2021-07-31] MEDS ORDERED: Isovue-370 500 ML BOTTLE IVP ONE (14:42)
[2021-07-31] MEDS ORDERED: Furosemide 60 MG in 0.9 % Sodium Chloride 50 ML IVPB ONE (16:40)
[2021-07-31] MEDS ORDERED: Naloxone 0.4 MG/ML INJ IVP PRN (16:59)
[2021-07-31] MEDS ORDERED: Ondansetron 4 MG/2 ML VIAL IVP PRN (16:59)
[2021-07-31] MEDS ORDERED: Ondansetron ODT 4 MG TAB.RAPDIS SL PRN (17:03)
[2021-07-31] MEDS ORDERED: MethylPREDNISolone 40 MG/ML VIAL IVP ONE (17:33)
[2021-07-31 19:50] LABS: INR 2.5; Prothrombin Time 28.2 Seconds (9.4-12.1)
[2021-07-31 19:52] LABS: Activated Partial Thrombo Time 41.4 Seconds (26.0-36.0)
[2021-07-31] MEDS: Furosemide 20 MG/2 ML VIAL IVP SCH (20:28)
[2021-07-31] MEDS ORDERED: *HR* Warfarin 3 MG TABLET PO ONE (20:30)
[2021-07-31] MEDS: Warfarin perPT PO SCH (21:33)
[2021-08-01 01:25] LABS: Basophils % 0.2 %; Eosinophils % 0.2 %; Hematocrit 29.8 % (35.3-44.9); Immature Granulocytes % 0.2 % (0-4); Lymphocytes # 0.3 K/mcL (0.6-4.6); Lymphocytes % 6.5 %; Mean Corpuscular HGB Conc 30.2 g/dL (31.6-35.5); Mean Corpuscular Hemoglobin 24.1 pg (28.0-33.3); Mean Corpuscular Volume 79.9 fL (83.0-100.0); Mean Platelet Volume 11.1 fL (9.4-12.4); Monocytes # 0.1 K/mcL (0.0-1.3); Monocytes % 1.7 %; Neutrophils # 3.8 K/mcL (1.6-8.9); Platelet Count 165 K/mcL (140-400); Red Blood Count 3.73 M/mcL (3.82-4.97); Red Cell Distribution Width 17.2 % (11.5-14.5); Segmented Neutrophils % 91.2 %; White Blood Count 4.2 K/mcL (4.3-11.1)
[2021-08-01 01:30] LABS: INR 2.6; Prothrombin Time 28.9 Seconds (9.4-12.1)
[2021-08-01 01:45] LABS: BUN/Creatinine Ratio 16 (6-26); Blood Urea Nitrogen 14 mg/dL (8-23); Calcium 8.8 mg/dL (8.6-10.3); Carbon Dioxide 27 mEq/L (23-29); Chloride 99 mEq/L (98-107); Glucose 118 mg/dL (70-105); Osmolality,Calculated 290 (280-300); Phosphorous 2.7 mg/dL (2.7-4.5); Potassium 3.9 mEq/L (3.5-5.1); Sodium 139 mEq/L (136-145); eGFR For African Americans > 60 (> 60); eGFR For Non-African Americans > 60 (> 60)
[2021-08-01] MEDS: lisinopriL 5 MG TABLET PO SCH (08:06)
[2021-08-01] MEDS: Cyanocobalamin (B-12) 1,000 MCG TABLET PO SCH (08:06)
[2021-08-01] MEDS: Furosemide 20 MG/2 ML VIAL IVP SCH ×2 (08:07→19:56)
[2021-08-01] MEDS: Ascorbic Acid 500 MG TABLET PO SCH (08:07)
[2021-08-01] MEDS: Spironolactone 25 MG TABLET PO SCH (08:07)
[2021-08-01] MEDS: Metoprolol XL (24 HR) Succ 25 MG TAB.ER.24H PO SCH (08:07)
[2021-08-01] MEDS: Warfarin perPT PO SCH (17:03)
[2021-08-01] MEDS ORDERED: *HR* Warfarin 3 MG TABLET PO ONE (18:00)
[2021-08-01] MEDS ORDERED: Ipratropium/Albuterol Neb 3 ML IH ONE (22:28)
[2021-08-02] MEDS ORDERED: 0.9 % Sodium Chloride 500 ML IV ONE (00:02)
[2021-08-02] MEDS: Menthol 1 EACH LOZENGE PO PRN ×2 (01:52→05:33)
[2021-08-02 06:15] LABS: Basophils % 0.5 %; Eosinophils # 0.2 K/mcL (0.0-0.6); Eosinophils % 3.4 %; Hemoglobin 9.1 g/dL (11.5-15.4); Immature Granulocytes % 0.3 % (0-4); Lymphocytes # 0.7 K/mcL (0.6-4.6); Mean Corpuscular HGB Conc 31.4 g/dL (31.6-35.5); Mean Corpuscular Hemoglobin 24.9 pg (28.0-33.3); Mean Corpuscular Volume 79.5 fL (83.0-100.0); Mean Platelet Volume 10.9 fL (9.4-12.4); Monocytes # 0.7 K/mcL (0.0-1.3); Monocytes % 11.3 %; Neutrophils # 4.8 K/mcL (1.6-8.9); Platelet Count 194 K/mcL (140-400); Red Blood Count 3.65 M/mcL (3.82-4.97); Red Cell Distribution Width 17.1 % (11.5-14.5); Segmented Neutrophils % 73.5 %
[2021-08-02 06:18] LABS: White Blood Count 6.5 K/mcL (4.3-11.1)
[2021-08-02 06:21] LABS: INR 3.2; Prothrombin Time 35.3 Seconds (9.4-12.1)
[2021-08-02 06:30] LABS: BUN/Creatinine Ratio 22 (6-26); Blood Urea Nitrogen 21 mg/dL (8-23); Carbon Dioxide 28 mEq/L (23-29); Chloride 99 mEq/L (98-107); Glucose 99 mg/dL (70-105); Osmolality,Calculated 285 (280-300); Potassium 3.5 mEq/L (3.5-5.1); Sodium 136 mEq/L (136-145); eGFR For African Americans > 60 (> 60); eGFR For Non-African Americans 58 (> 60)
[2021-08-02] MEDS: Budesonide/Formoterol 160/4.5 1 PUFF INH IH SCH ×2 (07:50→20:44)
[2021-08-02] MEDS: lisinopriL 5 MG TABLET PO SCH (08:08)
[2021-08-02] MEDS: Cyanocobalamin (B-12) 1,000 MCG TABLET PO SCH (08:11)
[2021-08-02] MEDS: Furosemide 20 MG/2 ML VIAL IVP SCH ×2 (08:11→19:42)
[2021-08-02] MEDS: Ascorbic Acid 500 MG TABLET PO SCH (08:11)
[2021-08-02] MEDS: Spironolactone 25 MG TABLET PO SCH (08:11)
[2021-08-02] MEDS: Metoprolol XL (24 HR) Succ 25 MG TAB.ER.24H PO SCH (08:17)
[2021-08-02] MEDS ORDERED: *HR* Warfarin 2 MG TABLET PO ONE (18:00)
[2021-08-02] MEDS ORDERED: *HR* Warfarin 1 MG TABLET PO ONE (18:00)
[2021-08-02] MEDS: Warfarin perPT PO SCH (18:17)
[2021-08-03 01:37] LABS: INR 3.5; Prothrombin Time 39.2 Seconds (9.4-12.1)
[2021-08-03 01:52] LABS: BUN/Creatinine Ratio 22 (6-26); Blood Urea Nitrogen 20 mg/dL (8-23); Calcium 8.7 mg/dL (8.6-10.3); Carbon Dioxide 26 mEq/L (23-29); Chloride 99 mEq/L (98-107); Glucose 153 mg/dL (70-105); Osmolality,Calculated 286 (280-300); Potassium 3.6 mEq/L (3.5-5.1); Sodium 135 mEq/L (136-145); eGFR For African Americans > 60 (> 60); eGFR For Non-African Americans > 60 (> 60)
[2021-08-03] MEDS: Metoprolol XL (24 HR) Succ 25 MG TAB.ER.24H PO SCH (07:11)
[2021-08-03] MEDS: lisinopriL 5 MG TABLET PO SCH (07:12)
[2021-08-03] MEDS: Budesonide/Formoterol 160/4.5 1 PUFF INH IH SCH (07:19)
[2021-08-03] MEDS: Ascorbic Acid 500 MG TABLET PO SCH (07:38)
[2021-08-03] MEDS: Furosemide 20 MG/2 ML VIAL IVP SCH (07:38)
[2021-08-03] MEDS: Spironolactone 25 MG TABLET PO SCH (07:38)
[2021-08-03] MEDS: Cyanocobalamin (B-12) 1,000 MCG TABLET PO SCH (07:38)
[2021-08-03 14:42] VITALS: BP 97/63; PULSE 65; TEMP 98.8; O2SAT 98
[2021-08-03 15:23] LABS: RBC,Pleural Fluid 45000 RBC/mcL
[2021-08-03 15:24] LABS: Appearance of Pleural Fl Bloody (Clear)
[2021-08-03 15:45] LABS: Total Protein,Pleural Fluid 2.7 g/dL
[2021-08-03] MEDS ORDERED: *HR* Warfarin 1 MG TABLET PO ONE (18:00)
[2021-08-03 19:22] LABS: Basophils,Pleural Fluid 0 %
== END 2021-08-03 17:54 | disposition home health service (06) | DRG 291 ==
LOC: EMEROOARM 09:24 → 3BNU 09:24 → SUATTDRO 17:18 → 3BNU 18:12
PROVIDERS: ADMIT Student in an Organized Health Care Education/Training Program; ATTEND Internal Medicine

== ENCOUNTER 2021-08-29 04:54 | Inpatient (IN) ==
[2021-08-29] MEDS ORDERED: methylPREDNISolone 125 MG/2 ML VIAL IVP ONE (05:04)
[2021-08-29] MEDS ORDERED: Ipratropium/Albuterol Neb 3 ML IH ONE (05:04)
[2021-08-29 05:26] LABS: Basophils % 0.1 %; Eosinophils % 0.1 %; Hematocrit 30.4 % (35.3-44.9); Hemoglobin 9.2 g/dL (11.5-15.4); Immature Granulocytes % 0.3 % (0-4); Lymphocytes # 0.7 K/mcL (0.6-4.6); Lymphocytes % 9.3 %; Mean Corpuscular HGB Conc 30.3 g/dL (31.6-35.5); Mean Corpuscular Hemoglobin 23.3 pg (28.0-33.3); Mean Platelet Volume 11.3 fL (9.4-12.4); Monocytes # 0.8 K/mcL (0.0-1.3); Monocytes % 11.8 %; Neutrophils # 5.5 K/mcL (1.6-8.9); Platelet Count 172 K/mcL (140-400); Red Blood Count 3.95 M/mcL (3.82-4.97); Red Cell Distribution Width 17.7 % (11.5-14.5); Segmented Neutrophils % 78.4 %
[2021-08-29 05:32] LABS: Prothrombin Time 22.7 Seconds (9.4-12.1)
[2021-08-29 05:36] LABS: Activated Partial Thrombo Time 35.9 Seconds (26.0-36.0)
[2021-08-29 05:42] LABS: Troponin I 0.07 ng/mL (< 0.04)
[2021-08-29 05:45] LABS: Albumin 3.6 g/dL (3.5-5.7); Albumin/Globulin Ratio 1.2 (1.1-2.2); Bilirubin,Direct 1.3 mg/dL (0.0-0.2); Bilirubin,Indirect 2.3 mg/dL (0.0-1.0); Bilirubin,Total 3.6 mg/dL (0.3-1.0); Calcium 8.8 mg/dL (8.6-10.3); Globulin 2.9 g/dL (2.4-3.5); Potassium 3.1 mEq/L (3.5-5.1); Total Protein 6.5 g/dL (6.4-8.9)
[2021-08-29 06:00] LABS: ABG Base Excess 5 mEq/L (-2 to 3); ABG HCO3 29 mEq/L (21-27); ABG Oxygen Saturation 92 % (95-98); ABG PCO2 40 mmHg (35-45); ABG PH 7.47 pH Units (7.32-7.45); ABG PO2 59 mmHg (85-104); ABG TCO2 30 mEq/L (20-26)
[2021-08-29] MEDS ORDERED: Furosemide 40 MG/4 ML VIAL IVP ONE (06:12)
[2021-08-29 06:37] LABS: Influenza A PCR Negative (Negative); Influenza B PCR Negative (Negative); Resp. Syncytial Virus PCR Negative (Negative); SARS-CoV-2 by PCR (In House) Negative (Negative)
[2021-08-29] MEDS ORDERED: Azithromycin 500 MG in 0.9 % Sodium Chloride 250 ML IVPB ONE (06:43)
[2021-08-29] MEDS ORDERED: cefTRIAXone 1,000 MG in Water for inj. (sterile) 10 ML IVP ONE (06:43)
[2021-08-29] MEDS ORDERED: Acetaminophen 325 MG TABLET PO PRN (08:21)
[2021-08-29] MEDS ORDERED: Ondansetron 4 MG/2 ML VIAL IVP PRN (08:21)
[2021-08-29] MEDS: Spironolactone 12.5 MG TABLET PO SCH (10:48)
[2021-08-29] MEDS: predniSONE 20 MG TABLET PO SCH (10:48)
[2021-08-29] MEDS: Azithromycin 250 MG TABLET PO SCH (10:48)
[2021-08-29] MEDS: Metoprolol XL (24 HR) Succ 25 MG TAB.ER.24H PO SCH (10:48)
[2021-08-29] MEDS: lisinopriL 5 MG TABLET PO SCH (10:50)
[2021-08-29] MEDS: Budesonide/Formoterol 80/4.5 1 PUFF INH IH SCH ×2 (11:28→20:30)
[2021-08-29] MEDS: Furosemide 40 MG/4 ML VIAL IVP SCH (16:51)
[2021-08-29] MEDS ORDERED: *HR* Warfarin 3 MG TABLET PO ONE (18:00)
[2021-08-29] MEDS ORDERED: Warfarin perPT PO PRN (18:00)
[2021-08-29] MEDS ORDERED: Melatonin 3 MG TABLET PO PRN (21:00)
[2021-08-29 23:03] LABS: Enterococcus by PCR Not Detected (Not Detect); Staphylococcus aureus by PCR Not Detected (Not Detect); Staphylococcus by PCR Not Detected (Not Detect); Streptococcus agalactiae(B)PCR Not Detected (Not Detect); Streptococcus by PCR Not Detected (Not Detect); Streptococcus pneumoniae PCR DETECTED (Not Detect); blaKPC Carbapenem-Resist Gene Not Detected (Not Detect); mecA Methicillin-Resist Gene Not Detected (Not Detect); vanA/B Vancomycin-Resist Genes Not Detected (Not Detect)
[2021-08-29 23:04] LABS: Acinetobacter baumannii by PCR Not Detected (Not Detect); Candida albicans by PCR Not Detected (Not Detect); Candida glabrata by PCR Not Detected (Not Detect); Candida krusei by PCR Not Detected (Not Detect); Candida parapsilosis by PCR Not Detected (Not Detect); Candida tropicalis by PCR Not Detected (Not Detect); Enterobacter cloacae Cmplx PCR Not Detected (Not Detect); Enterobacteriaceae by PCR Not Detected (Not Detect); Escherichia coli by PCR Not Detected (Not Detect); Klebsiella oxytoca by PCR Not Detected (Not Detect); Klebsiella pneumoniae by PCR Not Detected (Not Detect); Proteus by PCR Not Detected (Not Detect); Pseudomonas aeruginosa by PCR Not Detected (Not Detect); Serratia marcescens by PCR Not Detected (Not Detect); Streptococcus pyogenes (A) PCR Not Detected (Not Detect)
[2021-08-30 02:12] LABS: INR 2.1; Prothrombin Time 23.2 Seconds (9.4-12.1)
[2021-08-30 02:22] LABS: Potassium 3.2 mEq/L (3.5-5.1)
[2021-08-30 02:23] LABS: Albumin 3.3 g/dL (3.5-5.7); Albumin/Globulin Ratio 1.2 (1.1-2.2); Bilirubin,Total 1.8 mg/dL (0.3-1.0); Calcium 8.7 mg/dL (8.6-10.3); Globulin 2.8 g/dL (2.4-3.5); Magnesium 2.1 mg/dL (1.6-2.6); Phosphorous 3.5 mg/dL (2.7-4.5); Total Protein 6.1 g/dL (6.4-8.9); Troponin I 0.03 ng/mL (< 0.04)
[2021-08-30] MEDS ORDERED: Potassium Chloride Elixir 20 MEQ/15 ML UDC PO ONE (07:49)
[2021-08-30] MEDS: Budesonide/Formoterol 80/4.5 1 PUFF INH IH SCH ×2 (07:53→20:30)
[2021-08-30] MEDS: cefTRIAXone 2,000 MG in 0.9 % Sodium Chloride Mini Bag 100 ML IVPB SCH (08:06)
[2021-08-30] MEDS: Furosemide 40 MG/4 ML VIAL IVP SCH ×2 (08:09→16:21)
[2021-08-30] MEDS: Azithromycin 250 MG TABLET PO SCH (08:09)
[2021-08-30] MEDS: lisinopriL 5 MG TABLET PO SCH (08:09)
[2021-08-30] MEDS: Spironolactone 12.5 MG TABLET PO SCH (08:10)
[2021-08-30] MEDS: predniSONE 20 MG TABLET PO SCH (08:10)
[2021-08-30] MEDS: Metoprolol XL (24 HR) Succ 25 MG TAB.ER.24H PO SCH (08:10)
[2021-08-30] MEDS ORDERED: Perflutren Lipid Microsphere 1.3 ML in 0.9 % Sodium Chloride 8.7 ML IVP PRN (12:44)
[2021-08-30] MEDS ORDERED: Warfarin 2.5 MG, Warfarin 2 MG PO ONE (18:00)
[2021-08-31 06:28] LABS: INR 3.2; Prothrombin Time 35.6 Seconds (9.4-12.1)
[2021-08-31 06:39] LABS: Albumin 3.1 g/dL (3.5-5.7); Albumin/Globulin Ratio 1.2 (1.1-2.2); Calcium 8.9 mg/dL (8.6-10.3); Globulin 2.6 g/dL (2.4-3.5); Potassium 3.6 mEq/L (3.5-5.1); Total Protein 5.7 g/dL (6.4-8.9)
[2021-08-31] MEDS: Metoprolol XL (24 HR) Succ 25 MG TAB.ER.24H PO SCH (07:34)
[2021-08-31] MEDS: lisinopriL 5 MG TABLET PO SCH (07:34)
[2021-08-31] MEDS: Budesonide/Formoterol 80/4.5 1 PUFF INH IH SCH ×2 (08:16→23:41)
[2021-08-31] MEDS: cefTRIAXone 2,000 MG in 0.9 % Sodium Chloride Mini Bag 100 ML IVPB SCH (08:19)
[2021-08-31] MEDS: Furosemide 40 MG/4 ML VIAL IVP SCH ×2 (08:19→17:11)
[2021-08-31] MEDS: Azithromycin 250 MG TABLET PO SCH (08:20)
[2021-08-31] MEDS: predniSONE 20 MG TABLET PO SCH (08:20)
[2021-08-31] MEDS: Spironolactone 12.5 MG TABLET PO SCH (08:20)
[2021-08-31] MEDS ORDERED: Ipratropium/Albuterol Neb 3 ML IH PRN (08:32)
[2021-08-31] MEDS: Ipratropium/Albuterol Neb 3 ML IH SCH ×3 (10:29→23:41)
[2021-08-31] MEDS ORDERED: *HR* Warfarin 2 MG TABLET PO ONE (18:00)
[2021-09-01 02:28] LABS: Basophils % 0.1 %; Hematocrit 31.6 % (35.3-44.9); Hemoglobin 9.3 g/dL (11.5-15.4); Immature Granulocytes % 0.6 % (0-4); Lymphocytes # 0.5 K/mcL (0.6-4.6); Lymphocytes % 5.7 %; Mean Corpuscular HGB Conc 29.4 g/dL (31.6-35.5); Mean Corpuscular Hemoglobin 22.9 pg (28.0-33.3); Mean Corpuscular Volume 77.8 fL (83.0-100.0); Mean Platelet Volume 10.6 fL (9.4-12.4); Monocytes # 0.7 K/mcL (0.0-1.3); Monocytes % 7.8 %; Neutrophils # 7.2 K/mcL (1.6-8.9); Platelet Count 237 K/mcL (140-400); Red Blood Count 4.06 M/mcL (3.82-4.97); Segmented Neutrophils % 85.8 %; White Blood Count 8.4 K/mcL (4.3-11.1)
[2021-09-01 02:37] LABS: INR 4.3
[2021-09-01 02:42] LABS: Alanine Aminotransferase 7 Units/L (7-52); Albumin 3.4 g/dL (3.5-5.7); Albumin/Globulin Ratio 1.1 (1.1-2.2); Alkaline Phosphatase 92 Units/L (34-104); Aspartate Amino Transferase 17 Units/L (13-39); BUN/Creatinine Ratio 35 (6-26); Blood Urea Nitrogen 34 mg/dL (8-23); Calcium 9.2 mg/dL (8.6-10.3); Carbon Dioxide 32 mEq/L (23-29); Chloride 101 mEq/L (98-107); Glucose 96 mg/dL (70-105); Osmolality,Calculated 297 (280-300); Potassium 3.9 mEq/L (3.5-5.1); Sodium 140 mEq/L (136-145); Total Protein 6.4 g/dL (6.4-8.9); eGFR For African Americans > 60 (> 60); eGFR For Non-African Americans 56 (> 60)
[2021-09-01 02:43] LABS: Prothrombin Time 46.9 Seconds (9.4-12.1)
[2021-09-01] MEDS: Ipratropium/Albuterol Neb 3 ML IH SCH ×4 (03:33→21:08)
[2021-09-01] MEDS: Metoprolol XL (24 HR) Succ 25 MG TAB.ER.24H PO SCH ×2 (07:50→08:59)
[2021-09-01] MEDS: predniSONE 20 MG TABLET PO SCH ×2 (07:50→08:59)
[2021-09-01] MEDS: Spironolactone 12.5 MG TABLET PO SCH ×2 (07:50→08:59)
[2021-09-01] MEDS: lisinopriL 5 MG TABLET PO SCH ×2 (07:51→08:59)
[2021-09-01] MEDS: Budesonide/Formoterol 80/4.5 1 PUFF INH IH SCH ×2 (08:15→21:08)
[2021-09-01] MEDS: cefTRIAXone 2,000 MG in 0.9 % Sodium Chloride Mini Bag 100 ML IVPB SCH (08:31)
[2021-09-01] MEDS: Furosemide 40 MG/4 ML VIAL IVP SCH ×2 (08:32→16:10)
[2021-09-01] MEDS: Azithromycin 250 MG TABLET PO SCH (08:59)
[2021-09-01 18:49] VITALS: BP 112/72; PULSE 99; TEMP 97.8; O2SAT 95
== END 2021-09-01 22:56 | disposition short-term general hospital (02) | DRG 193 ==
LOC: EMEROOARM 04:54 → 3BNU 04:54 → SUATTDRO 08:55 → 3BNU 09:31
PROVIDERS: ADMIT Internal Medicine; ATTEND Internal Medicine